=== PATIENT | female | born 1975 | race Caucasian/White ===

== ENCOUNTER 2017-02-16 20:29 | Inpatient (IN) ==
[~2017-02-16 20:29] MED LIST: ROCURONIUM 10 MG/ML ML IV ONE
[2017-02-16] MEDS ORDERED: LORazepam 2 MG/ML VIAL IV ONE (20:45)
[2017-02-16] MEDS ORDERED: LORazepam 2 MG/ML VIAL ONE (20:47)
[2017-02-16] MEDS ORDERED: 0.9 % SODIUM CHLORIDE 2,000 ML IV ONE (20:57)
[2017-02-16 21:48] LABS: Basophils # (Auto) 0 K/mcL (0.0-0.3); Basophils % (Auto) 0.7 % (0.0-2.0); Eosinophils # (Auto) 0.2 K/mcL (0.0-0.7); Eosinophils % (Auto) 3.7 % (0.0-7.0); Granulocytes % (Auto) 58.9 % (38.0-78.0); Lymphocytes # (Auto) 1.6 K/mcL (1.5-4.8); Lymphocytes % (Auto) 28.7 % (15.5-49.0); Mean Cell Volume 83.6 fL (80.0-100.0); Mean Corpuscular HGB Conc 33.3 g/dL (31.0-36.0); Mean Corpuscular Hemoglobin 27.9 pg (26.0-34.0); Monocytes # (Auto) 0.4 K/mcL (0.1-0.9); Platelet Count 308 K/mcL (140-440); RBC 3.93 M/mcL (4.00-5.20); Red Cell Distribution Width 12.9 % (11.5-14.5)
[2017-02-16 22:12] LABS: ALT/SGPT 13 U/l (0-40); Albumin 3.5 gm/dL (3.2-5.2); Alkaline Phosphatase 85 U/L (39-117); Blood Urea Nitrogen 16 mg/dl (6-20); Lipase 28 U/L (7-60)
[2017-02-16] MEDS ORDERED: NOREPINEPHRINE BITARTRATE 4 MG/4 ML AMPUL IV ONE (22:24)
[2017-02-16 22:29] LABS: Acetaminophen < 5.0 mcg/ml (10.0-30.0); Salicylate < 0.2 mg/dL (0-30.0)
[2017-02-16] MEDS ORDERED: NOREPINEPHRINE BITARTRATE 16 MG in 0.9 % SODIUM CHLORIDE 234 ML IV SCH (22:30)
[2017-02-16] MEDS ORDERED: 0.9 % SODIUM CHLORIDE 250 ML IV SCH (22:30)
[2017-02-16 22:35] LABS: Appearance,Urine HAZY; Bacteria,Urine FEW /hpf (0); Bilirubin,Urine NEG (NEG); Color,Urine YELLOW; Glucose,Urine (UA) NEGATIVE (NEG); Leukocyte Esterase,Urine 25 /uL (NEG); Mucus,Urine MOD /hpf (0); Nitrate,Urine NEG (NEG); Protein,Urine 100 mg/dL (NEG); Urine Blood 0.03 mg/dL (<0.03); Urine Hyaline Cast 21 /lpf (0-2); Urine RBC 51 /hpf (0-1); Urine Squamous Epithelial Cell 1 /hpf (0-4); Urine Transitional Epi Cells < 1 /hpf (0-2); Urine WBC 10 /hpf (0-4); Urobilinogen,Urine NEG (NEG)
[2017-02-16 22:51] LABS: Amphetamine Screen,Urine SUSPECT POSITIVE (NONDETECTED); Benzodiazepines Screen,Urine NONE DETECTED (NONDETECTED); Cocaine Screen,Urine NONE DETECTED (NONDETECTED); Opiate Screen,Urine NONE DETECTED (NONDETECTED); Oxycodone, Urine Screen NONE DETECTED (NONDETECTED)
--- NOTE | 2017-02-16 22:51 | Emergency Department Note ---
General Adult HPI - General Chief complaint: Overdose Stated complaint: Overdose Time Seen by Provider: 02/16/17 20:57 Source: EMS Mode of arrival: EMS Limitations: altered mental status - History of Present Illness HPI Narrative: 41-year-old female was found down at home by her family with an empty syringe near her-this history per EMS. She does have a history of polysubstance abuse and IV drug use. However no family has come with her so I am unable to get any further history or review of systems. She is totally unresponsive except to sternal rub/painful stimuli-GCS is 7 with adequate breathing/respirations with oxygen support and pulse/blood pressure. EMS gave her 4 mg of Narcan intranasal which did not help at all-no noticeable change. It is unclear how long she was down and we do not know CODE STATUS - Related Data Home Medications Medication Instructions Recorded Confirmed buprenorphine 8 mg-naloxone 2 mg tab SUBLINGUAL TID tab 01/23/17 01/23/17 sublingual tablet Previous Rx's Medication Instructions Recorded clonidine HCl 0.3 mg tablet 0.3 mg PO BID #60 tab 10/11/16 atomoxetine 25 mg capsule 25 mg PO QDAY #30 cap 12/12/16 cyclobenzaprine 10 mg tablet 10 mg PO HS #30 tab 12/15/16 hydroxychloroquine 200 mg tablet 200 mg PO BID #60 tab 12/15/16 nabumetone 750 mg tablet 750 mg PO BID #60 tab 12/15/16 duloxetine 60 mg capsule,delayed 60 mg PO QDAY #30 cap 12/26/16 release Ciprofloxacin [Cipro] 250 mg PO BID #10 tablet 02/01/17 gabapentin 300 mg capsule 900 mg PO Q8H #270 cap 02/06/17 Allergies Allergy/AdvReac Type Severity Reaction Status Date / Time diphenhydramine AdvReac Intermediate Agitated Verified 01/31/17 20:43 [From Benadryl] Review of Systems Limitations: ROS unobtainable due to patients medical condition Past Medical History - Past Medical History Source: old records reviewed Medical history: Reports: fibromyalgia, hypertension, other (SLE, narcotic abuse ) Surgical history ED: Reports: cholecystectomy Psychiatric history: Reports: anxiety, depression, prior suicide attempt Family history: Reports: diabetes, other family history (Ankylosing spondylitis , RA, seizures) - Social History smoking status: Current every day smoker Alcohol use: Reports: None Drug use: Reports: prescription drug abuse Physical Exam On initial exam she is in no acute distress resting comfortably but totally unresponsive with a GCS of 7-no eye-opening, incomprehensible verbal response only to pain, withdrawal from pain. However her vital signs are stable with adequate blood pressure pulse respiratory rate and oxygenation with minimal support. Pulses are palpable at posterior tibialis femoral brachial radial and carotid-but thready with best at brachial. Pupils are not fixed or pinpoint but they are small and symmetrical, not responsive to light. I do not see any signs of trauma When trying to place a line and then place an IO she did attempt to withdraw from pain but this was nonspecific-she did not localize. On intubation she did initially attempt to fight jaw opening and so we had to use rocuronium. However her eyes never opened. Postintubation she did have equal lung sounds bilaterally and her heart rate was regular without murmur. Abdomen was nontender and there was no difficulty placing Miguel. I do not see any signs of direct injury or trauma - General Limitations: no limitations, other Course Vital Signs Pulse Rate 78 L 02/16/17 20:30 Respiratory Rate 15 L 02/16/17 20:30 Blood Pressure 131/80 02/16/17 20:30 Pulse Oximetry (%) 100 02/16/17 20:30 Pulse Rate 76 02/16/17 21:16 Respiratory Rate 14 02/16/17 21:16 Blood Pressure 100/80 02/16/17 21:16 Pulse Oximetry (%) 99 02/16/17 21:16 Medical Decision Making - Medical Records Medical records reviewed: Yes I reviewed the patient's medical records. I reviewed recent office notes as well as my last ER note with her - Lab Data Lab results reviewed: Yes I reviewed the patient's lab results. Result diagrams: 02/16/17 20:45 02/16/17 21:16 Lab Results 02/16/17 02/16/17 02/16/17 Range/Units 20:45 21:16 21:16 WBC 5.5 (4.5-11.0) K/mcL RBC 3.93 L (4.00-5.20) M/mcL Hgb 10.9 L (12.0-15.0) g/dL Hct 32.8 L (36.0-48.0) % POC Hct 34.0 L (36.0-48.0) % MCV 83.6 (80.0-100.0) fL MCH 27.9 (26.0-34.0) pg MCHC 33.3 (31.0-36.0) g/dL RDW 12.9 (11.5-14.5) % Plt Count 308 (140-440) K/mcL MPV 8.5 (7.4-10.4) fL Gran % 58.9 (38.0-78.0) % Lymph % (Auto) 28.7 (15.5-49.0) % [place] % (Auto) 8.0 (1.0-12.0) % Eos % (Auto) 3.7 (0.0-7.0) % Baso % (Auto) 0.7 (0.0-2.0) % Gran # 3.2 (1.8-8.0) K/mcL Lymph # (Auto) 1.6 (1.5-4.8) K/mcL [place] # (Auto) 0.4 (0.1-0.9) K/mcL Eos # (Auto) 0.2 (0.0-0.7) K/mcL Baso # (Auto) 0 (0.0-0.3) K/mcL Patient Temperature ABG pH ABG pH (Temp Correct) ABG pCO2 ABG pCO2 (Temp Corrct ABG pO2 ABG pO2 (Temp Correct ABG HCO3 ABG Total CO2 ABG O2 Saturation ABG Base Excess ABG Methemoglobin VBG Lactic Acid 1.7 (0.5-2.2) mmol/L Carboxyhemoglobin Total Hemoglobin Carbon Monoxide Screen 1.7 H (0.0-1.5) % Respiration Rate O2 Delivery Method O2 Delivery Level Vent Mode FiO2 Tidal Volume PEEP POC Sodium 142 (133-145) mmol/L Sodium 139 (133-145) mmol/L POC Potassium 3.2 L (3.3-5.1) mmol/L Potassium 3.2 L (3.3-5.1) mmol/L POC Chloride 103 (96-108) mmol/L Chloride 101 (96-108) mmol/L Carbon Dioxide 24 (22-30) mmol/L POC Total CO2 25 (22-30) mmol/L Anion Gap 14.0 (8-16) POC BUN 15 (6-20) mg/dl BUN 16 (6-20) mg/dl Creatinine 0.7 (0.6-1.1) mg/dl POC Creatinine 0.7 (0.6-1.1) mg/dl GFR Calculation 106 Glucose 143 H (70-105) mg/dL POC Glucose 137 H (70-105) mg/dL Calcium 8.4 L (8.6-10.4) mg/dl POC WB Ioniz Calcium 1.13 L (1.16-1.32) mmol/L Total Bilirubin 0.2 (0.0-1.0) mg/dL AST 19 (0-37) U/l ALT 13 (0-40) U/l Alkaline Phosphatase 85 (39-117) U/L Troponin T (0-0.03) ng/ml Total Protein 7.0 (5.9-8.4) gm/dL Albumin 3.5 (3.2-5.2) gm/dL Globulin 3.5 (2.2-3.7) gm/dL Albumin/Globulin Ratio 1.0 (1.0-2.3) Lipase 28 (7-60) U/L Urine Color Urine Appearance Urine pH (5.0-9.0) Ur Specific [place] (1.000-1.035) Urine Protein (NEG) mg/dL Urine Glucose (UA) (NEG) mg/dL Urine Ketones (NEG) mg/dL Urine Occult Blood (<0.03) mg/dL Urine Nitrate (NEG) Urine Bilirubin (NEG) mg/dL Urine Urobilinogen (NEG) mg/dL Ur Leukocyte Esterase (NEG) /uL Urine RBC (0-1) /hpf Urine WBC (0-4) /hpf Ur Squamous Epith Cells (0-4) /hpf Ur Transition Epith Cell (0-2) /hpf Urine Bacteria (0) /hpf Hyaline Casts (0-2) /lpf Urine Mucus (0) /hpf Ur Culture Indicated? Salicylates (0-30.0) mg/dL Urine Opiates Screen (NONDETECTED) Ur Oxycodone Screen (NONDETECTED) Urine Methadone Screen (NONDETECTED) Acetaminophen (10.0-30.0) mcg/ml Ur Barbiturates Screen (NONDETECTED) Ur Phencyclidine Scrn (NONDETECTED) Ur Amphetamines Screen (NONDETECTED) U Benzodiazepines Scrn (NONDETECTED) Urine Cocaine Screen (NONDETECTED) U Marijuana (THC) Screen (NONDETECTED) Ethyl Alcohol (<0.010) gm/dl 02/16/17 02/16/17 02/16/17 Range/Units 21:16 21:16 21:16 WBC (4.5-11.0) K/mcL RBC (4.00-5.20) M/mcL Hgb (12.0-15.0) g/dL Hct (36.0-48.0) % POC Hct (36.0-48.0) % MCV (80.0-100.0) fL MCH (26.0-34.0) pg MCHC (31.0-36.0) g/dL RDW (11.5-14.5) % Plt Count (140-440) K/mcL MPV (7.4-10.4) fL Gran % (38.0-78.0) % Lymph % (Auto) (15.5-49.0) % [place] % (Auto) (1.0-12.0) % Eos % (Auto) (0.0-7.0) % Baso % (Auto) (0.0-2.0) % Gran # (1.8-8.0) K/mcL Lymph # (Auto) (1.5-4.8) K/mcL [place] # (Auto) (0.1-0.9) K/mcL Eos # (Auto) (0.0-0.7) K/mcL Baso # (Auto) (0.0-0.3) K/mcL Patient Temperature ABG pH ABG pH (Temp Correct) ABG pCO2 ABG pCO2 (Temp Corrct ABG pO2 ABG pO2 (Temp Correct ABG HCO3 ABG Total CO2 ABG O2 Saturation ABG Base Excess ABG Methemoglobin VBG Lactic Acid (0.5-2.2) mmol/L Carboxyhemoglobin Total Hemoglobin Carbon Monoxide Screen (0.0-1.5) % Respiration Rate O2 Delivery Method O2 Delivery Level Vent Mode FiO2 Tidal Volume PEEP POC Sodium (133-145) mmol/L Sodium (133-145) mmol/L POC Potassium (3.3-5.1) mmol/L Potassium (3.3-5.1) mmol/L POC Chloride (96-108) mmol/L Chloride (96-108) mmol/L Carbon Dioxide (22-30) mmol/L POC Total CO2 (22-30) mmol/L Anion Gap (8-16) POC BUN (6-20) mg/dl BUN (6-20) mg/dl Creatinine (0.6-1.1) mg/dl POC Creatinine (0.6-1.1) mg/dl GFR Calculation Glucose (70-105) mg/dL POC Glucose (70-105) mg/dL Calcium (8.6-10.4) mg/dl POC WB Ioniz Calcium (1.16-1.32) mmol/L Total Bilirubin (0.0-1.0) mg/dL AST (0-37) U/l ALT (0-40) U/l Alkaline Phosphatase (39-117) U/L Troponin T < 0.01 (0-0.03) ng/ml Total Protein (5.9-8.4) gm/dL Albumin (3.2-5.2) gm/dL Globulin (2.2-3.7) gm/dL Albumin/Globulin Ratio (1.0-2.3) Lipase (7-60) U/L Urine Color Urine Appearance Urine pH (5.0-9.0) Ur Specific [place] (1.000-1.035) Urine Protein (NEG) mg/dL Urine Glucose (UA) (NEG) mg/dL Urine Ketones (NEG) mg/dL Urine Occult Blood (<0.03) mg/dL Urine Nitrate (NEG) Urine Bilirubin (NEG) mg/dL Urine Urobilinogen (NEG) mg/dL Ur Leukocyte Esterase (NEG) /uL Urine RBC (0-1) /hpf Urine WBC (0-4) /hpf Ur Squamous Epith Cells (0-4) /hpf Ur Transition Epith Cell (0-2) /hpf Urine Bacteria (0) /hpf Hyaline Casts (0-2) /lpf Urine Mucus (0) /hpf Ur Culture Indicated? Salicylates < 0.2 (0-30.0) mg/dL Urine Opiates Screen (NONDETECTED) Ur Oxycodone Screen (NONDETECTED) Urine Methadone Screen (NONDETECTED) Acetaminophen < 5.0 L (10.0-30.0) mcg/ml Ur Barbiturates Screen (NONDETECTED) Ur Phencyclidine Scrn (NONDETECTED) Ur Amphetamines Screen (NONDETECTED) U Benzodiazepines Scrn (NONDETECTED) Urine Cocaine Screen (NONDETECTED) U Marijuana (THC) Screen (NONDETECTED) Ethyl Alcohol < 0.010 (<0.010) gm/dl 02/16/17 02/16/17 02/16/17 Range/Units 21:16 21:59 22:01 WBC (4.5-11.0) K/mcL RBC (4.00-5.20) M/mcL Hgb (12.0-15.0) g/dL Hct (36.0-48.0) % POC Hct (36.0-48.0) % MCV (80.0-100.0) fL MCH (26.0-34.0) pg MCHC (31.0-36.0) g/dL RDW (11.5-14.5) % Plt Count (140-440) K/mcL MPV (7.4-10.4) fL Gran % (38.0-78.0) % Lymph % (Auto) (15.5-49.0) % [place] % (Auto) (1.0-12.0) % Eos % (Auto) (0.0-7.0) % Baso % (Auto) (0.0-2.0) % Gran # (1.8-8.0) K/mcL Lymph # (Auto) (1.5-4.8) K/mcL [place] # (Auto) (0.1-0.9) K/mcL Eos # (Auto) (0.0-0.7) K/mcL Baso # (Auto) (0.0-0.3) K/mcL Patient Temperature Cancelled ABG pH Cancelled ABG pH (Temp Correct) Cancelled ABG pCO2 Cancelled ABG pCO2 (Temp Corrct Cancelled ABG pO2 Cancelled ABG pO2 (Temp Correct Cancelled ABG HCO3 Cancelled ABG Total CO2 Cancelled ABG O2 Saturation Cancelled ABG Base Excess Cancelled ABG Methemoglobin Cancelled VBG Lactic Acid (0.5-2.2) mmol/L Carboxyhemoglobin Cancelled Total Hemoglobin Cancelled Carbon Monoxide Screen (0.0-1.5) % Respiration Rate Cancelled O2 Delivery Method Cancelled O2 Delivery Level Cancelled Vent Mode Cancelled FiO2 Cancelled Tidal Volume Cancelled PEEP Cancelled POC Sodium (133-145) mmol/L Sodium (133-145) mmol/L POC Potassium (3.3-5.1) mmol/L Potassium (3.3-5.1) mmol/L POC Chloride (96-108) mmol/L Chloride (96-108) mmol/L Carbon Dioxide (22-30) mmol/L POC Total CO2 (22-30) mmol/L Anion Gap (8-16) POC BUN (6-20) mg/dl BUN (6-20) mg/dl Creatinine (0.6-1.1) mg/dl POC Creatinine (0.6-1.1) mg/dl GFR Calculation Glucose (70-105) mg/dL POC Glucose (70-105) mg/dL Calcium (8.6-10.4) mg/dl POC WB Ioniz Calcium (1.16-1.32) mmol/L Total Bilirubin (0.0-1.0) mg/dL AST (0-37) U/l ALT (0-40) U/l Alkaline Phosphatase (39-117) U/L Troponin T (0-0.03) ng/ml Total Protein (5.9-8.4) gm/dL Albumin (3.2-5.2) gm/dL Globulin (2.2-3.7) gm/dL Albumin/Globulin Ratio (1.0-2.3) Lipase (7-60) U/L Urine Color Yellow Urine Appearance Hazy Urine pH 5.0 (5.0-9.0) Ur Specific [place] 1.030 (1.000-1.035) Urine Protein 100 A (NEG) mg/dL Urine Glucose (UA) Negative (NEG) mg/dL Urine Ketones Neg (NEG) mg/dL Urine Occult Blood 0.03 A (<0.03) mg/dL Urine Nitrate Neg (NEG) Urine Bilirubin Neg (NEG) mg/dL Urine Urobilinogen Neg (NEG) mg/dL Ur Leukocyte Esterase 25 A (NEG) /uL Urine RBC 51 H (0-1) /hpf Urine WBC 10 H (0-4) /hpf Ur Squamous Epith Cells 1 (0-4) /hpf Ur Transition Epith Cell < 1 (0-2) /hpf Urine Bacteria Few A (0) /hpf Hyaline Casts 21 H (0-2) /lpf Urine Mucus Mod (0) /hpf Ur Culture Indicated? Yes Salicylates (0-30.0) mg/dL Urine Opiates Screen None detected (NONDETECTED) Ur Oxycodone Screen None detected (NONDETECTED) Urine Methadone Screen None detected (NONDETECTED) Acetaminophen (10.0-30.0) mcg/ml Ur Barbiturates Screen None detected (NONDETECTED) Ur Phencyclidine Scrn Suspect positive A (NONDETECTED) Ur Amphetamines Screen Suspect positive A (NONDETECTED) U Benzodiazepines Scrn None detected (NONDETECTED) Urine Cocaine Screen None detected (NONDETECTED) U Marijuana (THC) Screen None detected (NONDETECTED) Ethyl Alcohol (<0.010) gm/dl First arterial blood gas showed pH of 7.39 with PCO2 of 48 and a PO2 of 50 it is unclear if this was veinous but it is suspected Second arterial blood gas was repeated on the other side which showed pH of 7.34 PCO2 of 51 and PO2 of 70 - Radiology Data Radiology results reviewed: Yes I reviewed the patient's radiology results. Chest x-ray shows possibly early bilateral infiltrate but this is equivocal as its portable. ET tube is perhaps 4 cm above the tala - EKG Data EKG #1 EKG attestation: Yes I reviewed and interpreted this EKG. EKG results narrative: EKG shows a rate of 87 borderline long QT no evidence of ischemia Critical Care Time Critical Care Time: Yes Total Critical Care Time: 45 Attestation: I spent 45 minutes of critical care time not including procedure time or initial evaluation. This included serial examination, documentation, care coordination. I was immediately available at all times Disposition Pt seen by FRONT END UI DEVELOPER/PA only: No Clinical Impression: Drug overdose Qualifiers: Encounter type: initial encounter Injury intent: undetermined intent Qualified Code(s): T50.904A - Poisoning by unspecified drugs, medicaments and biological substances, undetermined, initial encounter Hypotension Qualifiers: Hypotension type: hypotension due to drug Qualified Code(s): I95.2 - Hypotension due to drugs Summary: Initially came in as a drug overdose/code but patient was breathing on her own with normal respirations heart rate and blood pressure. IO was placed as we were having difficulty getting a IV. oxygen was given blow-by but she did not require it. She was found to have a GCS of 7 and so we intubated her to protect her airway-she was given 80 mg of rocuronium and then I allowed EMS to intubate to maintain their skill set-he was successful after first attempt with video-assisted laryngoscope. She was been given another 20 mg of rocuronium and 2 of Ativan to keep her sedated-however she did not require any further. Laboratory was ordered. Miguel was placed. Chest x-ray was ordered for tube placement. See nursing notes for orders, code times etc. At no time did she require CPR CT scan of the head showed no acute cranial abnormality Chest x-ray showed ET tube was a little too high and so it was advanced ABG was was done 2 to adjust vent Later, after she had been here about 2 hours she started developing hypotension despite getting IV fluids. We placed her in reverse Trendelenburg and started Levophed Discussed her case with Dr. Payton Angeles, the hospitalist, who agreed to accept the patient in transfer for further care Disposition: Xfer As Inpt ([facility]) Condition: Critical Referrals: Kelechi Andrew DO [Physician] -
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
[2017-02-16] MEDS ORDERED: NALOXONE HCL 0.4 MG/ML VIAL IV PRN (23:21)
[2017-02-16] MEDS ORDERED: ACETAMINOPHEN 650 MG SUPP.RECT PR PRN (23:21)
[2017-02-16] MEDS ORDERED: ALBUTEROL SULFATE 2.5 MG/3 ML NEBULIZER NEB PRN (23:21)
[2017-02-16] MEDS ORDERED: BISACODYL 10 MG SUPP.RECT PR PRN (23:21)
[2017-02-16] MEDS ORDERED: ONDANSETRON 4 MG/2 ML VIAL IV PRN (23:21)
[2017-02-16] MEDS ORDERED: PROPOFOL 100 ML IV SCH (23:21)
[2017-02-16] MEDS: POTASSIUM CHLORIDE 40 MEQ in DEXTROSE 5%-1/2NS 1,000 ML IV SCH (23:40)
[2017-02-16] MEDS: PROPOFOL 1,000 MG in PREMIX 1 BAG IV SCH (23:40)
[2017-02-17] MEDS ORDERED: PROPOFOL 100 ML IV ONE (00:08)
[2017-02-17] MEDS: 0.9 % SODIUM CHLORIDE 250 ML IV SCH ×4 (00:16→17:56)
[2017-02-17] MEDS ORDERED: PIPERACILLIN SODIUM/TAZOBACTAM 3.375 GM VIAL IV ONE (01:29)
[2017-02-17] MEDS: PIPERACILLIN SODIUM/TAZOBACTAM 3.375 GM in DEXTROSE 5% IN WATER 50 ML IV SCH ×4 (01:39→18:06)
[2017-02-17] MEDS ORDERED: ALBUTEROL SULFATE 2.5 MG/3 ML NEBULIZER ONE (01:51)
[2017-02-17] MEDS: ALBUTEROL SULFATE 2.5 MG/3 ML NEBULIZER NEB SCH ×4 (01:55→19:51)
[2017-02-17 06:06] LABS: Basophils # (Auto) 0 K/mcL (0.0-0.3); Basophils % (Auto) 0.1 % (0.0-2.0); Eosinophils # (Auto) 0.1 K/mcL (0.0-0.7); Eosinophils % (Auto) 1.2 % (0.0-7.0); Granulocytes % (Auto) 66.8 % (38.0-78.0); Lymphocytes # (Auto) 1.4 K/mcL (1.5-4.8); Lymphocytes % (Auto) 23.1 % (15.5-49.0); Mean Cell Volume 85.1 fL (80.0-100.0); Mean Corpuscular HGB Conc 33.4 g/dL (31.0-36.0); Mean Corpuscular Hemoglobin 28.4 pg (26.0-34.0); Monocytes # (Auto) 0.5 K/mcL (0.1-0.9); Monocytes % (Auto) 8.8 % (1.0-12.0); Platelet Count 262 K/mcL (140-440); RBC 4.07 M/mcL (4.00-5.20)
[2017-02-17 06:13] LABS: ALT/SGPT 12 U/l (0-40); Albumin 3.2 gm/dL (3.2-5.2); Albumin/Globulin Ratio 0.8 (1.0-2.3); Alkaline Phosphatase 82 U/L (39-117); Bilirubin,Direct < 0.2 mg/dL (0.0-0.3); Blood Urea Nitrogen 12 mg/dl (6-20); Gamma Glutamyl Transpeptidase 10 U/L (5-36); Magnesium 1.7 mg/dL (1.6-2.5)
[2017-02-17] MEDS: 0.9 % SODIUM CHLORIDE 10 ML SYRINGE IV SCH ×3 (07:23→22:03)
--- NOTE | 2017-02-17 08:10 | XRay Report ---
HISTORY: Reason for Exam:intubated FINDINGS: The endotracheal tube has been inserted. The tip is 4.7 cm above the tala the level of the top of the head of the clavicles. There is no abnormal widening of the mediastinum and no pneumothorax or pleural effusion are present. There are mild perihilar infiltrates in both lungs, right greater than left. The greatest involvement overlies right lower hilum. There has been moderate improvement of the infiltrate in the right side since 01-31. The infiltrate on the left side has not changed significantly. The heart size is normal. IMPRESSION: Well-positioned endotracheal tube. Bilateral perihilar infiltrates which may be due to pneumonia Interpreted and Authenticated by: Nii Herrera 02/17/17
--- NOTE | 2017-02-17 08:11 | Cat Scan Report ---
History: Overdose and unresponsive Findings: The brain was imaged without contrast at 2.5 mm intervals. The brain appears normal without evidence of edema, hemorrhage, infarct or mass effect. The ventricles and cisterns are normal. Bone windows show no skull fracture. Impression: Normal exam Interpreted and Authenticated by: Nii Herrera 02/17/17
--- NOTE | 2017-02-17 08:13 | XRay Report ---
HISTORY: Reason for Exam:NG placement FINDINGS: There is nasogastric tube in the body of the stomach pointing towards the left lateral side of the abdomen. The bowel pattern is normal. No free intra-abdominal air is seen on this supine image. There may be a clip in the gallbladder fossa. Moderate amount of stool is present in the right side of the colon. IMPRESSION: Normal exam with a nasogastric tube in the stomach Interpreted and Authenticated by: Nii Herrera 02/17/17
[2017-02-17] MEDS ORDERED: MAGNESIUM SULFATE 2 GM/50 ML BAG IV ONE (08:34)
[2017-02-17] MEDS: CHLORHEXIDINE GLUCONATE 1 ML ORAL.SOL SWABMOUTH SCH ×2 (08:39→21:26)
[2017-02-17] MEDS: HEPARIN 5,000 UNIT/ML VIAL SQ SCH ×2 (08:42→21:26)
[2017-02-17] MEDS: FAMOTIDINE/PF 20 MG/2 ML VIAL IV SCH ×2 (08:42→21:25)
[2017-02-17] MEDS: POTASSIUM CHLORIDE 40 MEQ in DEXTROSE 5%-1/2NS 1,000 ML IV SCH ×3 (08:50→20:00)
--- NOTE | 2017-02-17 08:57 | XRay Report ---
History: Intubated and pulmonary protrudes Endotracheal tube has been advanced and is now less than 1 cm above the tala and points towards the right mainstem bronchus. The nasogastric tube remains in the fundus of the stomach. There are ill-defined bilateral perihilar infiltrates. This is become more prominent since the prior study done on 02/16/17. The heart size is normal. Bands of discoid atelectasis have developed laterally in the right lower thorax. There is a tiny right-sided pleural effusion. No pneumothorax is present. Impression: Low-lying endotracheal tube Worsening bilateral infiltrates which could be due to pneumonia or pulmonary vascular congestion Interpreted and Authenticated by: Nii Herrera 02/17/17
[2017-02-17] MEDS ORDERED: CHLORHEXIDINE GLUCONATE 1 ML ORAL.SOL SWABMOUTH SCH (09:00)
--- NOTE | 2017-02-17 12:05 | Internal Med Progress Note ---
Medical - PN: Subj Patient information: Note initiated : 02/17/17 at 12:05 pm Service Date, if different from initiated Date: [] Patient: Radha Van a 41 y/o F admitted on 02/16/17 for Drug Overdose. Chief Complaint: [] Interval history: February 16, 2017: History of present illness: Ms. Van is a 41 year old female who reportedly was found down at home by her landlady, with an empty syringe near her. 911 was called. She does have a past history of polysubstance abuse. Her family did not arrive at the emergency room, so there is very little history available. In the emergency room she was only minimally responsive to sternal rub and painful stimuli, with Glascow coma score of 7. She did not respond to IV Narcan. It is unknown how long she was down for. She was intubated in the emergency room to protect her airway. Blood pressures have been running on the low side, so she has been given IV fluids and IV Levophed for support. SHe is now admitted to the intensive care unit, for continued management. February 17: The patient had a relatively quiet night. She was weaned off the propofol this morning, and was fairly calm and mostly unresponsive initially, but then she did wake up and became rather violent and resisted restraints and the ET tube. The nurses could not get her to settle down or follow commands, so propofol was resumed. She did drop her O2 saturations during that period, and FiO2 was increased back up to 45%. -Chest x-ray this morning shows that the ET tube is in a little far, so that was pulled back a bit. She does have bilateral infiltrates consistent with pneumonia, but this may be a bit better this morning. -Urine output has been borderline at about 30 mL/h. -Her mother called in today to check on her, but said she was not sure she would be in today. She reported she has been through this just too many times. - Constitutional Vitals: Vital Signs Temp Pulse Resp BP Pulse Ox 98.5 F 66 17 135/103 97 02/17/17 11:00 02/17/17 11:00 02/17/17 11:00 02/17/17 11:00 02/17/17 11:00 Period Temp Pulse Resp BP Sys/Chung Pulse Ox Last 24 Hr 94.5 F-98.8 F 65-76 10-23 103-135/71-105 91-100 Intake and Output 02/16/17 02/17/17 02/17/17 21:59 05:59 13:59 Intake Total 76 / 2080 1502 / 1502 Output Total 860 / 860 135 / 135 Balance -784 / 1220 1367 / 1367 Weight 177 lb 14.4 oz Intake & Output: Intake & Output 02/16/17 02/17/17 02/17/17 21:59 05:59 13:59 Intake Total 76 / 2080 1502 / 1502 Output Total 860 / 860 135 / 135 Balance -784 / 1220 1367 / 1367 Weight 177 lb 14.4 oz Intake: IV 76 / 76 1502 / 1502 Sodium Chloride 0.9% 250 351 / 351 ml @ 20 mls/hr IV . [id number] [facility] Rx#:[id number] Zosyn 3.375 gm In 50 / 50 50 / 50 Dextrose 5% in Water 50 ml @ 100 mls/hr IV Q6H [facility] Rx#:[id number] Potassium Chloride 40 Meq 1020 / 1020 In Dextrose 5%-1/2Ns IV Solution 1,000 ml @ 125 mls/hr IV .Q8H10M [facility] Rx# :[id number] Diprivan 1,000 mg In Premix 1 Bag @ 5 MCG/KG/ MIN 2.42 mls/hr IV .Q24H [facility] Rx#:[id number] Output: Gastric Drainage 270 / 270 NG/OG 270 / 270 Urine Catheter Amount 590 / 590 135 / 135 Other: # Bowel Movements 0 The patient is intubated and sedated. Neck appears supple, without obvious JVD or lymphadenopathy. Cardiac exam shows regular rate and rhythm. Lungs are clear to auscultation. Abdomen is soft, with normal bowel sounds. NG tube is draining greenish fluid, although the nurses note occasionally become slightly pink tinged. Extremities: Show no significant edema. Neurologic: The patient is currently sedated and unresponsive. Nurses note when she was awake earlier, she was quite violently straining against the ET tube and her restraints. She did not seem able to calm down and listen to directions. Medical - PN: Obj Da - Labs CBC & Chem 7: 02/17/17 04:31 02/17/17 04:31 Labs: Abnormal Lab Results 02/17/17 02/17/17 04:31 04:31 Hgb 11.6 L Hct 34.6 L Lymph # (Auto) 1.4 L Glucose 161 H Globulin 3.8 H Albumin/Globulin Ratio 0.8 L February 17: Urine culture is growing gram-negative bacilli, with ID to follow ABG: On the ventilator, tidal volume 470, FiO2 45%, mechanical rate 10, PEEP of 5, assist control: PH 7.40, PCO2 44, PO2 108, bicarb 27, O2 saturation 98% February 16 nasal MRSA screen is negative. Chest x-ray: ET tube is well-positioned. NG tube is noted in the stomach. Mild streaky infiltrates in both lungs with the greatest involvement of the medial portion of the right lower lobe, without lobar consolidation. February 16: Urinalysis: 100 mg of protein, 25 leukocyte esterase, 51 red blood cells, 10 white blood cells, few bacteria Tox screen: Acetaminophen negative. Screening positive for PCP and amphetamines , otherwise negative. Alcohol negative. Head CT: Reported as negative. Chest x-ray: Reported as possible bilateral infiltrates. Well-positioned ET tube. EKG: Shows sinus tach at about 100. Intervals and axis appear normal. Abdominal x-ray: Normal exam with NG tube noted in the stomach. January 31, 2017: - Lower extremity Doppler: Negative for DVT. -Chest x-ray: Diffuse right-sided infiltrates and mild left perihilar infiltrate , consistent with pneumonia. January 23, 2017: Urine culture: Klebsiella pneumonia: Resistant to ampicillin, intermediate to Macrobid, otherwise pansensitive Meds: Medications Acetaminophen (Tylenol) 650 mg VT Q4-6HP PRN PRN Reason: PAIN/FEVER > 101 Albuterol Sulfate (Ventolin) 2.5 mg NEB Q4HRT PRN PRN Reason: Shortness Of Breath Or Wheezing Albuterol Sulfate (Ventolin) 2.5 mg NEB Q6H [facility] Last Admin: 02/17/17 07:03 Dose: 2.5 mg Bisacodyl (Dulcolax) 10 mg VT Q2-3DAYS PRN PRN Reason: Constipation Chlorhexidine Gluconate (Peridex) 15 ml SWABMOUTH BID [facility] Last Admin: 02/17/17 08:39 Dose: 15 ml Famotidine (Pepcid) 20 mg IV Q12 [facility] Last Admin: 02/17/17 08:42 Dose: 20 mg Heparin Sodium (Porcine) (Heparin) 5,000 unit SQ Q12 [facility] Last Admin: 02/17/17 08:42 Dose: 5,000 unit Norepinephrine Bitartrate 16 (mg/ Sodium Chloride) 250 mls @ 9.37 mls/hr IV Q24H [facility]; 10 MCG/MIN PRN Reason: Protocol Sodium Chloride (Sodium Chloride 0.9%) 250 mls @ 20 mls/hr IV .[id number] [facility] Last Infusion: 02/17/17 11:04 Dose: 10 mls/hr Sodium Chloride (Sodium Chloride 0.9%) 250 mls @ 20 mls/hr IV .[id number] [facility] Last Admin: 02/17/17 01:23 Dose: Not Given Potassium Chloride 40 meq/ (Dextrose/Sodium Chloride) 1,020 mls @ 125 mls/hr IV .Q8H10M [facility] Last Admin: 02/17/17 08:50 Dose: 125 mls/hr Piperacillin Sod/Tazobactam (Sod 3.375 gm/ Dextrose) 50 mls @ 100 mls/hr IV Q6H [facility] Last Infusion: 02/17/17 07:52 Dose: Infused Propofol 1,000 mg/ Premix 100 mls @ 2.42 mls/hr IV .Q24H [facility]; 5 MCG/KG/MIN PRN Reason: Protocol Last Titration: 02/17/17 11:04 Dose: 40 mcg/kg/min, 19.36 mls/hr Lorazepam (Ativan) 1 mg IV Q6HP PRN; Protocol PRN Reason: ANXIETY/SEDATION Morphine Sulfate (Morphine) 4 mg IV Q2HP PRN PRN Reason: Pain Naloxone HCl (Narcan) 0.1 mg IV Q2MIN PRN PRN Reason: Opiate Reversal Ondansetron HCl (Zofran) 4 mg IV Q4-6HP PRN PRN Reason: Nausea And Vomiting Sodium Chloride (Saline Flush) 10 ml IV Q8 [facility] Last Admin: 02/17/17 07:23 Dose: 10 ml Medical - PN: A/P - Time Spent With Patient Total time spent is greater than 50% in coordination of care (as documented) at patient's floor/unit and/or counseling patient: Greater than 35 minutes (1) Drug overdose Status: Acute Current Visit: Yes (2) Hypotension Status: Acute Current Visit: Yes (3) Connective tissue disease Status: Chronic Current Visit: No (4) Depression Status: Chronic Current Visit: No (5) Essential hypertension Status: Chronic Current Visit: No - Narrative A/P Narrative: #1. Apparent drug overdose. This patient presents with obtundation, and was found down at home by her family. A needle was found nearby, suggesting IV drug use. She has a known past history of polysubstance abuse, but had been clean and sober for a while. Was recently started on Suboxone. So far, tox screen is suggestive of methamphetamines and possible PCP. -The patient's blood gases look fine today, but when sedation was weaned she really was not able to follow directions. We will plan on continuing with sedation and ventilation for now, although we may give her another trial later this afternoon. -Mental status is probably not back to normal. Continue with IV fluids, and hopefully drugs will be flushed out of her system over time. -ICU. -Fluids, monitor electrolytes. -Potassium and calcium levels both look normal today. -Monitor heart on telemetry, stable so far.. -Unfortunately, her family did not arrive to discuss CODE STATUS. Hopefully she will be more alert cooperative, given more time. If she wakes up, she will require mental health evaluation. -Continue restraints for inability to follow direction, and high risk for pulling tubes and lines. 2. CODE STATUS: Unknown. Full code for now. 3. DVT prophylaxis: Subcu heparin. #4. Neurologic. The patient is minimally responsive, presumably due to IV drug use. Continue to monitor. 5. Pulmonary/infectious disease.. -Patient was recently diagnosed with bilateral pneumonia, and treated with Levaquin, on January 31. Current chest x-ray is still suggestive of pneumonia. -She has bilateral infiltrates. Current coverage is with Zosyn, and vancomycin was added today, given that she has had infiltrates at least since January 31. 6. Cardiac. So far, no signs of arrhythmias or heart block. 7. GI. Orogastric tube placed. Added IV famotidine for ulcer prophylaxis. -Patient is mildly more anemic than before. Check stool guaiacs. #8. . Abnormal urinalysis. Recent UTI. -Patient will be covered with Zosyn, and is growing gram negatives in her urine.. Pending cultures. #9. Nutrition. If she is not able to be extubated by tomorrow, consider tube feedings. Approximately 35 minutes has been spent so far today, reviewing test results, examining the patient, reviewing plan of care at our team meeting as well as with nursing staff, and writing orders.
--- NOTE | 2017-02-17 12:53 | XRay Report ---
HISTORY: Reason for Exam:ETT placement verification after pulled back 2cm FINDINGS: The endotracheal tube is well positioned, 3.8 cm above the tala. There is a nasogastric tube in the fundus the stomach, pointing inferiorly. There are mild streaky infiltrates in both lungs with greatest involvement in the medial portion right lower lobe. There is no lobar consolidation or pleural effusion. The heart size is normal. IMPRESSION: Well-positioned support tubes and no pneumothorax. There are two mild interstitial infiltrates bilaterally. There has been mild improvement since earlier today.. Interpreted and Authenticated by: Nii Herrera 02/17/17
[2017-02-17] MEDS ORDERED: VANCOMYCIN PER PHARMACY IV SCH (12:55)
[2017-02-17] MEDS: VANCOMYCIN 1,000 MG in 0.9 % SODIUM CHLORIDE 250 ML IV SCH ×2 (14:13→22:02)
[2017-02-17] MEDS: PROPOFOL 1,000 MG in PREMIX 1 BAG IV SCH (17:55)
[2017-02-17] MEDS: LORazepam 2 MG/ML VIAL IV PRN (21:48)
[2017-02-17] MEDS ORDERED: hydrALAZINE 20 MG/ML VIAL IV PRN ×2 (22:30)
[2017-02-17] MEDS: NOREPINEPHRINE BITARTRATE 16 MG in 0.9 % SODIUM CHLORIDE 234 ML IV SCH (23:18)
[2017-02-17] MEDS ORDERED: hydrALAZINE 20 MG/ML VIAL ONE (23:20)
[2017-02-18] MEDS: PROPOFOL 1,000 MG in PREMIX 1 BAG IV SCH (00:14)
[2017-02-18] MEDS: PIPERACILLIN SODIUM/TAZOBACTAM 3.375 GM in DEXTROSE 5% IN WATER 50 ML IV SCH ×4 (00:15→17:41)
[2017-02-18] MEDS: ALBUTEROL SULFATE 2.5 MG/3 ML NEBULIZER NEB SCH ×5 (01:17→19:02)
[2017-02-18] MEDS: 0.9 % SODIUM CHLORIDE 250 ML IV SCH ×4 (01:17→16:15)
[2017-02-18] MEDS: POTASSIUM CHLORIDE 40 MEQ in DEXTROSE 5%-1/2NS 1,000 ML IV SCH (04:09)
[2017-02-18] MEDS ORDERED: hydrALAZINE 20 MG/ML VIAL ONE (05:23)
[2017-02-18] MEDS: LORazepam 2 MG/ML VIAL IV PRN (06:02)
[2017-02-18 07:14] LABS: Basophils # (Auto) 0 K/mcL (0.0-0.3); Basophils % (Auto) 0.5 % (0.0-2.0); Eosinophils # (Auto) 0.2 K/mcL (0.0-0.7); Eosinophils % (Auto) 2.7 % (0.0-7.0); Lymphocytes # (Auto) 1.5 K/mcL (1.5-4.8); Lymphocytes % (Auto) 19.4 % (15.5-49.0); Mean Cell Volume 86.8 fL (80.0-100.0); Mean Corpuscular HGB Conc 33.4 g/dL (31.0-36.0); Mean Corpuscular Hemoglobin 28.9 pg (26.0-34.0); Monocytes # (Auto) 0.9 K/mcL (0.1-0.9); Monocytes % (Auto) 11.4 % (1.0-12.0); Platelet Count 265 K/mcL (140-440); RBC 4.05 M/mcL (4.00-5.20); Red Cell Distribution Width 13.1 % (11.5-14.5)
[2017-02-18 07:40] LABS: ALT/SGPT 12 U/l (0-40); Albumin 2.9 gm/dL (3.2-5.2); Albumin/Globulin Ratio 0.9 (1.0-2.3); Alkaline Phosphatase 78 U/L (39-117); Bilirubin,Direct < 0.2 mg/dL (0.0-0.3); Blood Urea Nitrogen 8 mg/dl (6-20); Gamma Glutamyl Transpeptidase 10 U/L (5-36); Magnesium 1.7 mg/dL (1.6-2.5); Uric Acid 2.5 mg/dL (2.5-8.0)
[2017-02-18] MEDS: DEXTROSE 5%-1/2NS W/40MEQ KCL 1,000 ML IV SCH ×4 (08:08→20:42)
[2017-02-18] MEDS: 0.9 % SODIUM CHLORIDE 10 ML SYRINGE IV SCH ×4 (08:35→21:24)
--- NOTE | 2017-02-18 08:59 | XRay Report ---
HISTORY: Reason for Exam:intubation, drug od and follow-up pulmonary infiltrates FINDINGS: There are numerous overlying artifacts. Endotracheal tube and nasogastric tube are well-positioned. There is no pneumothorax. A small but enlarging alveolar infiltrate is present in the right lower lobe. Right diaphragm is mildly elevated. More subtle interstitial infiltrate is present medially in the left lower lobe. This has remained stable. The heart size is normal. IMPRESSION: Small but worsening pneumonia in the right lower lobe Interpreted and Authenticated by: Nii Herrera 02/18/17
[2017-02-18] MEDS: FAMOTIDINE/PF 20 MG/2 ML VIAL IV SCH ×2 (09:18→21:23)
[2017-02-18] MEDS: HEPARIN 5,000 UNIT/ML VIAL SQ SCH ×2 (09:18→21:23)
[2017-02-18] MEDS: VANCOMYCIN 1,000 MG in 0.9 % SODIUM CHLORIDE 250 ML IV SCH ×2 (09:18→21:23)
--- NOTE | 2017-02-18 13:09 | Internal Med Progress Note ---
Medical - PN: Subj Patient information: Note initiated : 02/18/17 at 1:09 pm Service Date, if different from initiated Date: [] Patient: Radha Van a 41 y/o F admitted on 02/16/17 for Drug Overdose. Chief Complaint: [] Interval history: February 16, 2017: History of present illness: Ms. Van is a 41 year old female who reportedly was found down at home by her landlady, with an empty syringe near her. 911 was called. She does have a past history of polysubstance abuse. Her family did not arrive at the emergency room, so there is very little history available. In the emergency room she was only minimally responsive to sternal rub and painful stimuli, with Glascow coma score of 7. She did not respond to IV Narcan. It is unknown how long she was down for. She was intubated in the emergency room to protect her airway. Blood pressures have been running on the low side, so she has been given IV fluids and IV Levophed for support. SHe is now admitted to the intensive care unit, for continued management. February 17: The patient had a relatively quiet night. She was weaned off the propofol this morning, and was fairly calm and mostly unresponsive initially, but then she did wake up and became rather violent and resisted restraints and the ET tube. The nurses could not get her to settle down or follow commands, so propofol was resumed. She did drop her O2 saturations during that period, and FiO2 was increased back up to 45%. -Chest x-ray this morning shows that the ET tube is in a little far, so that was pulled back a bit. She does have bilateral infiltrates consistent with pneumonia, but this may be a bit better this morning. -Urine output has been borderline at about 30 mL/h. -Her mother called in today to check on her, but said she was not sure she would be in today. She reported she has been through this just too many times. February 18: The patient had a good night. She had a couple of episodes where she became quite agitated, but eventually was weaned off the propofol. She was given Ativan this morning for some mild agitation, but has been calm ever since then. She is easily arousable, and cooperative. She was on a weaning trial for quite some time, and did fine, so was extubated about an hour ago. As soon as she was extubated, she asked for pain medication, saying she had a bad headache and a sore throat. Otherwise, she denied chest pain or shortness of breath, abdominal pain, or other GI or symptoms. Later this afternoon, the patient is still quite drowsy. When she is awakened, she immediately asked for pain medication. She indicates she has pain in her head and throat and back and legs, but is fairly nonspecific about what actually hurts, and then almost immediately falls back asleep. Nursing staff tells me that a gentleman came by earlier today, saying he was her nurse charge rn, and that his uatsdin had been working with her to get clean and sober , and that they had gotten her job. He seemed to indicate however, that as soon as she made some money, they thought she had bought drugs. - Constitutional Vitals: Vital Signs Temp Pulse Resp BP Pulse Ox 99.3 F H 78 11 L 124/82 100 02/18/17 11:54 02/18/17 12:01 02/18/17 12:01 02/18/17 12:01 02/18/17 12:01 Period Temp Pulse Resp BP Sys/Chung Pulse Ox Last 24 Hr 97.4 F-99.8 F 54-78 10-19 105-144/73-115 95-100 Intake and Output 02/17/17 02/18/17 02/18/17 21:59 05:59 13:59 Intake Total 1590 / 1590 1170 / 1170 50 / 50 Output Total 360 / 360 638 / 638 835 / 835 Balance 1230 / 1230 532 / 532 -785 / -785 Weight 187 lb 8 oz Intake & Output: Intake & Output 02/17/17 02/18/17 02/18/17 21:59 05:59 13:59 Intake Total 1590 / 1590 1170 / 1170 50 / 50 Output Total 360 / 360 638 / 638 835 / 835 Balance 1230 / 1230 532 / 532 -785 / -785 Weight 187 lb 8 oz Intake: IV 1590 / 1590 1170 / 1170 50 / 50 Sodium Chloride 0.9% 250 84 / 84 0 / 0 ml @ 20 mls/hr IV . [id number] [facility] Rx#:[id number] Zosyn 3.375 gm In 50 / 50 50 / 50 50 / 50 Dextrose 5% in Water 50 ml @ 100 mls/hr IV Q6H [facility] Rx#:[id number] Potassium Chloride 40 Meq 1170 / 1170 870 / 870 In Dextrose 5%-1/2Ns IV Solution 1,000 ml @ 125 mls/hr IV .Q8H10M [facility] Rx# :[id number] Diprivan 1,000 mg In 36 / 36 0 / 0 Premix 1 Bag @ 5 MCG/KG/ MIN 2.42 mls/hr IV .Q24H [facility] Rx#:[id number] Vancomycin 1,000 mg In 250 / 250 250 / 250 Sodium Chloride 0.9% 250 ml @ 250 mls/hr IV Q12H [facility] Rx#:[id number] Output: Gastric Drainage 180 / 180 150 / 150 NG/OG 180 / 180 150 / 150 Urine Catheter Amount 180 / 180 488 / 488 835 / 835 On exam, she was a little bit drowsy, but otherwise awake and cooperative. Next shows no obvious lymphadenopathy or JVD. Cardiac shows regular rate and rhythm. Lungs are clear to auscultation. Abdomen is soft and nontender. Extremities: Show minimal edema. Neurologic: The patient was awake and cooperative prior to extubation. Later in the afternoon, the patient is extubated, and is maintaining saturation on room air. She remains quite sleepy. She does arouse to voice. She tends to talk in a whisper. She denies feeling drowsy, but tends to fall asleep mid sentence. Medical - PN: Obj Da - Labs CBC & Chem 7: 02/18/17 04:15 02/18/17 04:15 Labs: Abnormal Lab Results 02/18/17 02/18/17 02/17/17 04:15 04:15 04:31 Hgb 11.7 L 11.6 L Hct 35.1 L 34.6 L Lymph # (Auto) 1.4 L Glucose Calcium 7.9 L Phosphorus 2.4 L Albumin 2.9 L Globulin Albumin/Globulin Ratio 0.9 L 02/17/17 04:31 Hgb Hct Lymph # (Auto) Glucose 161 H Calcium Phosphorus Albumin Globulin 3.8 H Albumin/Globulin Ratio 0.8 L February 18: ABG on the ventilator, tidal volume 470, FiO2 25%, rate of 12: PH 7.44, CO2 36, PO2 71, bicarb 24, O2 saturation 95% February 17: Urine culture is growing E. coli, intermediate to Unasyn and ciprofloxacin and Levaquin, sensitive to Zosyn, Ancef, Macrobid ABG: On the ventilator, tidal volume 470, FiO2 45%, mechanical rate 10, PEEP of 5, assist control: PH 7.40, PCO2 44, PO2 108, bicarb 27, O2 saturation 98% February 16 nasal MRSA screen is negative. Chest x-ray: ET tube is well-positioned. NG tube is noted in the stomach. Mild streaky infiltrates in both lungs with the greatest involvement of the medial portion of the right lower lobe, without lobar consolidation. February 16: Urinalysis: 100 mg of protein, 25 leukocyte esterase, 51 red blood cells, 10 white blood cells, few bacteria Tox screen: Acetaminophen negative. Screening positive for PCP and amphetamines , otherwise negative. Alcohol negative. Head CT: Reported as negative. Chest x-ray: Reported as possible bilateral infiltrates. Well-positioned ET tube. EKG: Shows sinus tach at about 100. Intervals and axis appear normal. Abdominal x-ray: Normal exam with NG tube noted in the stomach. January 31, 2017: - Lower extremity Doppler: Negative for DVT. -Chest x-ray: Diffuse right-sided infiltrates and mild left perihilar infiltrate , consistent with pneumonia. January 23, 2017: Urine culture: Klebsiella pneumonia: Resistant to ampicillin, intermediate to Macrobid, otherwise pansensitive Meds: Medications Acetaminophen (Tylenol) 650 mg [place] Q4-6HP PRN PRN Reason: PAIN/FEVER > 101 Albuterol Sulfate (Ventolin) 2.5 mg NEB Q6HRT [facility] Last Admin: 02/18/17 07:08 Dose: 2.5 mg Bisacodyl (Dulcolax) 10 mg [place] Q2-3DAYS PRN PRN Reason: Constipation Chlorhexidine Gluconate (Peridex) 15 ml SWABMOUTH BID [facility] Last Admin: 02/17/17 21:26 Dose: 15 ml Famotidine (Pepcid) 20 mg IV Q12 [facility] Last Admin: 02/18/17 09:18 Dose: 20 mg Heparin Sodium (Porcine) (Heparin) 5,000 unit SQ Q12 [facility] Last Admin: 02/18/17 09:18 Dose: 5,000 unit Hydralazine HCl (Apresoline) 10 mg IV Q4-6HP PRN PRN Reason: Hypertension Last Admin: 02/18/17 11:40 Dose: 10 mg Norepinephrine Bitartrate 16 (mg/ Sodium Chloride) 250 mls @ 9.37 mls/hr IV Q24H [facility]; 10 MCG/MIN PRN Reason: Protocol Last Admin: 02/17/17 23:18 Dose: Not Given Sodium Chloride (Sodium Chloride 0.9%) 250 mls @ 20 mls/hr IV .[id number] [facility] Last Infusion: 02/18/17 07:08 Dose: Infused Sodium Chloride (Sodium Chloride 0.9%) 250 mls @ 20 mls/hr IV .[id number] [facility] Last Admin: 02/18/17 01:17 Dose: Not Given Piperacillin Sod/Tazobactam (Sod 3.375 gm/ Dextrose) 50 mls @ 100 mls/hr IV Q6H [facility] Last Admin: 02/18/17 11:51 Dose: 100 mls/hr Propofol 1,000 mg/ Premix 100 mls @ 2.42 mls/hr IV .Q24H [facility]; 5 MCG/KG/MIN PRN Reason: Protocol Last Titration: 02/18/17 07:18 Dose: Infused Vancomycin HCl 1,000 mg/ (Sodium Chloride) 250 mls @ 250 mls/hr IV Q12H [facility] Last Admin: 02/18/17 09:18 Dose: 200 mls/hr Potassium Chloride/Dextrose/Sod Cl (Dextrose 5%-1/2ns W/40meq Kcl) 1,000 mls @ 150 mls/hr IV .Q6H40M [facility] Last Admin: 02/18/17 08:08 Dose: Not Given Lorazepam (Ativan) 1 mg IV Q6HP PRN; Protocol PRN Reason: ANXIETY/SEDATION Last Admin: 02/18/17 06:02 Dose: 1 mg Morphine Sulfate (Morphine) 4 mg IV Q2HP PRN PRN Reason: Pain Last Admin: 02/18/17 12:56 Dose: 4 mg Naloxone HCl (Narcan) 0.1 mg IV Q2MIN PRN PRN Reason: Opiate Reversal Ondansetron HCl (Zofran) 4 mg IV Q4-6HP PRN PRN Reason: Nausea And Vomiting Sodium Chloride (Saline Flush) 10 ml IV Q8 [facility] Last Admin: 02/18/17 11:41 Dose: 10 ml Vancomycin HCl (Vancomycin Per Pharmacy) 1 order IV UD [facility] Medical - PN: A/P - Time Spent With Patient Total time spent is greater than 50% in coordination of care (as documented) at patient's floor/unit and/or counseling patient: Greater than 35 minutes (1) Drug overdose Status: Acute Current Visit: Yes (2) Hypotension Status: Acute Current Visit: Yes (3) Connective tissue disease Status: Chronic Current Visit: No (4) Depression Status: Chronic Current Visit: No (5) Essential hypertension Status: Chronic Current Visit: No - Narrative A/P Narrative: #1. Apparent drug overdose. This patient presents with obtundation, and was found down at home by her family. A needle was found nearby, suggesting IV drug use. She has a known past history of polysubstance abuse, but had been clean and sober for a while. Was recently started on Suboxone. So far, tox screen is suggestive of methamphetamines and possible PCP. -She is now extubated. Her friend that stopped by earlier, believes this was another suicide attempt. I did ask nursing staff to try calling [facility] to see if they could come and talk with her today or tomorrow. At the moment, the patient is still quite drowsy, and continues to complain of pain in various areas. We will continue to monitor her tonight, to see if she becomes more alert. Psychiatric follow-up when available. -Monitor heart on telemetry, stable so far.. -Unfortunately, her family did not arrive to discuss CODE STATUS. Hopefully she will be more alert cooperative, given more time. 2. CODE STATUS: Unknown. Full code for now. 3. DVT prophylaxis: Subcu heparin. #4. Neurologic. The patient is awake now, although she continues to be drowsy. Continue supportive care, and reevaluate mental status once more awake. 5. Pulmonary/infectious disease.. -Patient was extubated successfully this morning. She is maintaining O2 saturations on 3 L nasal cannula. -Patient was recently diagnosed with bilateral pneumonia, and treated with Levaquin, on January 31. Current chest x-ray is still suggestive of pneumonia. -She has bilateral infiltrates. Current coverage is with Zosyn, and vancomycin was added , given that she has had infiltrates at least since January 31. She continues to have a low-grade fever this evening. 6. Cardiac. So far, no signs of arrhythmias or heart block. Continue monitoring on telemetry 7. GI. Orogastric tube removed this morning. On IV famotidine for ulcer prophylaxis. -Start an oral diet once fully awake. -Patient is mildly more anemic than before. Check stool guaiacs. #8. . Abnormal urinalysis. Recent UTI. -Patient will be covered with Zosyn, and is growing gram negatives in her urine.. Pending cultures. #9. Renal. Calcium remains on the low side, as does phosphorus. Replace. Approximately 35 minutes has been spent so far today, reviewing test results, examining the patient twice, reviewing plan of care with nursing staff, and writing orders.
[2017-02-18] MEDS: CHLORHEXIDINE GLUCONATE 1 ML ORAL.SOL SWABMOUTH SCH ×2 (16:15→21:23)
[2017-02-18] MEDS ORDERED: ACETAMINOPHEN 500 MG TABLET PO PRN (19:02)
[2017-02-18] MEDS ORDERED: LIDOCAINE VISCOUS 2% 1 ML SOLUTION PO PRN ×2 (19:02→19:10)
[2017-02-18] MEDS: ACETAMINOPHEN 325 MG TABLET PO PRN (19:16)
[2017-02-18] MEDS ORDERED: ACETAMINOPHEN 325 MG TABLET PO ONE (19:18)
[2017-02-18] MEDS ORDERED: NEUTRA PHOS 1 PACKET ONE (22:47)
[2017-02-18] MEDS: NEUTRA PHOS 1 PACKET PO SCH (22:52)
[2017-02-18] MEDS: NOREPINEPHRINE BITARTRATE 16 MG in 0.9 % SODIUM CHLORIDE 234 ML IV SCH (22:53)
[2017-02-19] MEDS: ALBUTEROL SULFATE 2.5 MG/3 ML NEBULIZER NEB SCH ×4 (00:57→19:38)
[2017-02-19] MEDS: PIPERACILLIN SODIUM/TAZOBACTAM 3.375 GM in DEXTROSE 5% IN WATER 50 ML IV SCH ×4 (00:57→23:41)
[2017-02-19 05:30] LABS: Basophils # (Auto) 0 K/mcL (0.0-0.3); Basophils % (Auto) 0.6 % (0.0-2.0); Eosinophils # (Auto) 0.5 K/mcL (0.0-0.7); Eosinophils % (Auto) 7.3 % (0.0-7.0); Granulocytes % (Auto) 51.6 % (38.0-78.0); Lymphocytes # (Auto) 1.9 K/mcL (1.5-4.8); Mean Cell Volume 85.4 fL (80.0-100.0); Mean Corpuscular HGB Conc 33.9 g/dL (31.0-36.0); Monocytes # (Auto) 0.6 K/mcL (0.1-0.9); Monocytes % (Auto) 9.5 % (1.0-12.0); Platelet Count 227 K/mcL (140-440); RBC 3.98 M/mcL (4.00-5.20); Red Cell Distribution Width 13.2 % (11.5-14.5)
[2017-02-19] MEDS: 0.9 % SODIUM CHLORIDE 10 ML SYRINGE IV SCH ×5 (05:34→21:57)
[2017-02-19] MEDS: DEXTROSE 5%-1/2NS W/40MEQ KCL 1,000 ML IV SCH ×2 (05:34→08:17)
[2017-02-19] MEDS: 0.9 % SODIUM CHLORIDE 250 ML IV SCH ×3 (05:34→18:36)
[2017-02-19 06:00] LABS: ALT/SGPT 11 U/l (0-40); Albumin 2.7 gm/dL (3.2-5.2); Albumin/Globulin Ratio 0.9 (1.0-2.3); Alkaline Phosphatase 76 U/L (39-117); Bilirubin,Direct < 0.2 mg/dL (0.0-0.3); Blood Urea Nitrogen 5 mg/dl (6-20); Gamma Glutamyl Transpeptidase 11 U/L (5-36); Magnesium 1.7 mg/dL (1.6-2.5); Uric Acid 2.5 mg/dL (2.5-8.0)
[2017-02-19] MEDS ORDERED: CALCIUM CARBONATE 500 MG TAB.CHEW CHEWED SCH ×2 (08:00→17:30)
[2017-02-19] MEDS: NEUTRA PHOS 1 PACKET PO SCH ×2 (08:45→20:40)
[2017-02-19] MEDS: FAMOTIDINE/PF 20 MG/2 ML VIAL IV SCH ×2 (08:47→20:40)
[2017-02-19] MEDS: HEPARIN 5,000 UNIT/ML VIAL SQ SCH ×2 (08:47→20:40)
[2017-02-19] MEDS ORDERED: BISACODYL 10 MG SUPP.RECT PR PRN (09:10)
[2017-02-19] MEDS ORDERED: MAGNESIUM HYDROXIDE 30 ML ORAL.SUSP PO PRN ×3 (09:13→18:17)
[2017-02-19] MEDS: ACETAMINOPHEN 325 MG TABLET PO PRN ×2 (09:25→20:41)
--- NOTE | 2017-02-19 10:00 | XRay Report ---
HISTORY: Reason for Exam:intubation, drug od and follow-up right lower lobe infiltrate FINDINGS: A small infiltrate is present at the right lung base. This has improved since 02/18/17. A small band of discoid atelectasis is present medially in the left lower lobe, extending up to the hilum. Lung volumes are small due to poor inspiration. The heart size and pulmonary vasculature are normal. The endotracheal tube and nasogastric tube have been removed. There is no pneumothorax or pleural effusion. IMPRESSION: Resolving pulmonary infiltrates Interpreted and Authenticated by: Nii Herrera 02/19/17
[2017-02-19] MEDS: VANCOMYCIN 1,000 MG in 0.9 % SODIUM CHLORIDE 250 ML IV SCH ×2 (10:39→20:47)
[2017-02-19] MEDS ORDERED: FUROSEMIDE 20 MG/2 ML VIAL IV ONE (11:18)
[2017-02-19] MEDS ORDERED: MAGNESIUM SULFATE 32.48 MEQ in DEXTROSE 5% IN WATER 50 ML IV ONE (12:00)
[2017-02-19] MEDS ORDERED: NOREPINEPHRINE BITARTRATE 16 MG in 0.9 % SODIUM CHLORIDE 234 ML IV PRN (13:30)
[2017-02-19] MEDS ORDERED: VANCOMYCIN PER PHARMACY IV SCH ×2 (13:42→18:17)
[2017-02-19] MEDS ORDERED: 0.9 % SODIUM CHLORIDE 250 ML IV SCH (13:42)
[2017-02-19] MEDS ORDERED: LIDOCAINE VISCOUS 2% 1 ML SOLUTION PO PRN ×2 (13:42→18:17)
[2017-02-19] MEDS ORDERED: ONDANSETRON 4 MG/2 ML VIAL IV PRN ×2 (13:42→18:17)
[2017-02-19] MEDS ORDERED: ACETAMINOPHEN 325 MG TABLET PO PRN (13:42)
[2017-02-19] MEDS ORDERED: ACETAMINOPHEN 160 MG/5 ML ORAL.SOL PO SCH (13:45)
[2017-02-19] MEDS ORDERED: 0.9 % SODIUM CHLORIDE 10 ML SYRINGE IV SCH (14:00)
--- NOTE | 2017-02-19 15:52 | Internal Med Progress Note ---
Medical - PN: Subj Patient information: Note initiated : 02/19/17 at 3:48 pm Service Date, if different from initiated Date: [] Patient: Radha Van a 41 y/o F admitted on 02/16/17 for Drug Overdose. Chief Complaint: [] Interval history: February 16, 2017: History of present illness: Ms. Van is a 41 year old female who reportedly was found down at home by her landlady, with an empty syringe near her. 911 was called. She does have a past history of polysubstance abuse. Her family did not arrive at the emergency room, so there is very little history available. In the emergency room she was only minimally responsive to sternal rub and painful stimuli, with Glascow coma score of 7. She did not respond to IV Narcan. It is unknown how long she was down for. She was intubated in the emergency room to protect her airway. Blood pressures have been running on the low side, so she has been given IV fluids and IV Levophed for support. SHe is now admitted to the intensive care unit, for continued management. February 17: The patient had a relatively quiet night. She was weaned off the propofol this morning, and was fairly calm and mostly unresponsive initially, but then she did wake up and became rather violent and resisted restraints and the ET tube. The nurses could not get her to settle down or follow commands, so propofol was resumed. She did drop her O2 saturations during that period, and FiO2 was increased back up to 45%. -Chest x-ray this morning shows that the ET tube is in a little far, so that was pulled back a bit. She does have bilateral infiltrates consistent with pneumonia, but this may be a bit better this morning. -Urine output has been borderline at about 30 mL/h. -Her mother called in today to check on her, but said she was not sure she would be in today. She reported she has been through this just too many times. February 18: The patient had a good night. She had a couple of episodes where she became quite agitated, but eventually was weaned off the propofol. She was given Ativan this morning for some mild agitation, but has been calm ever since then. She is easily arousable, and cooperative. She was on a weaning trial for quite some time, and did fine, so was extubated about an hour ago. As soon as she was extubated, she asked for pain medication, saying she had a bad headache and a sore throat. Otherwise, she denied chest pain or shortness of breath, abdominal pain, or other GI or symptoms. Later this afternoon, the patient is still quite drowsy. When she is awakened, she immediately asked for pain medication. She indicates she has pain in her head and throat and back and legs, but is fairly nonspecific about what actually hurts, and then almost immediately falls back asleep. Nursing staff tells me that a gentleman came by earlier today, saying he was her program strategist, and that his [employer]al had been working with her to get clean and sober , and that they had gotten her job. He seemed to indicate however, that as soon as she made some money, they thought she had bought drugs. February 19: Today, the patient continues to be quite sleepy. She falls asleep, often mid- sentence. I believe she received 1 dose of IV morphine during the night for pain. The nurses to get her out of bed and have her up in a chair this morning , but she falls asleep there as well. She is questioned more closely today about what happened the night she came in. She says she really does not have a very good memory of it, but she is quite sure she did not use IV drugs. She believes she used a mixture of various prescription drug pills that she had. She cannot explain why a needle was found near her bed, or why her tox screen shows methamphetamines. She admits she just wanted to . She says her life is just too messed up. She did not want to call anyone for help. She admits she does not really have a relationship with her children or other family anymore. She says she hurts all the time. Otherwise, she does report that she has pain, including a headache, pain in her hands and wrist, pain in her knees, pain in her lower sternum, nausea.. She says she has not had a bowel movement for a while. She denies fever or chills, dizziness, shortness of breath, vomiting or diarrhea, or dysuria. She does still have a Miguel catheter in place. - Constitutional Vitals: Vital Signs Temp Pulse Resp BP Pulse Ox 98.3 F 14 L 13 102/51 94 02/19/17 08:05 02/19/17 13:10 02/19/17 15:01 02/19/17 15:01 02/19/17 14:01 Period Temp Pulse Resp BP Sys/Chung Pulse Ox Last 24 Hr 97.6 F-99.8 F 14-99 11-22 99-130/51-80 91-100 Intake and Output 02/19/17 02/19/17 02/19/17 05:59 13:59 21:59 Intake Total 1350 / 1350 2082 Output Total 1090 / 1090 2280 / 2280 460 / 460 Balance 260 / 260 -197 / -197 -460 / -460 Intake & Output: Intake & Output 02/19/17 02/19/17 02/19/17 05:59 13:59 21:59 Intake Total 1350 / 1350 2082 Output Total 1090 / 1090 2280 / 2280 460 / 460 Balance 260 / 260 -197 / -197 -460 / -460 Intake: IV 1300 / 1300 1408 / 1408 Dextrose 5%-1/2Ns W/40Meq 1000 / 1000 1000 / 1000 KCl 1,000 ml @ 150 mls/ hr IV .[id number] [facility] Rx#: [id number] Magnesium Sulfate 32.48 58 / 58 Meq In Dextrose 5% in Water 50 ml @ 58 mls/hr IV ONCE ONE Rx#:[id number] Zosyn 3.375 gm In 50 / 50 100 / 100 Dextrose 5% in Water 50 ml @ 100 mls/hr IV Q6H [facility] Rx#:[id number] Vancomycin 1,000 mg In 250 / 250 250 / 250 Sodium Chloride 0.9% 250 ml @ 250 mls/hr IV Q12H [facility] Rx#:[id number] Oral 50 / 50 675 / 675 Output: Urine Catheter Amount 1090 / 1090 2280 / 2280 460 / 460 Other: Meal Lunch Percent of Meal Consumed 50% Feeding Ability Independent Intake and output shows she is about 4 L ahead on fluids She is sitting up in a chair. She has a hard time keeping her eyes open. Neck is supple without obvious lymphadenopathy or JVD. Cardiac exam shows regular rate and rhythm. Lungs are clear to auscultation. Abdomen is soft and nontender. Extremities: Hands and feet are quite puffy. Neurologic exam: The patient continues to be rather lethargic. She states that she believes it is because she recently OD'd on drugs. Motor exam is grossly nonfocal. Medical - PN: Obj Da - Labs CBC & Chem 7: 02/19/17 04:09 02/19/17 04:09 Labs: Abnormal Lab Results 02/19/17 02/19/17 02/19/17 07:58 04:09 04:09 RBC 3.98 L Hgb 11.5 L Hct 34.0 L Eos % (Auto) 7.3 H Lymph # (Auto) BUN 5 L Glucose 111 H Calcium 7.9 L Phosphorus Total Protein 5.8 L Albumin 2.7 L Globulin Albumin/Globulin Ratio 0.9 L Vancomycin Trough 15.3 H 02/18/17 02/18/17 02/17/17 04:15 04:15 04:31 RBC Hgb 11.7 L 11.6 L Hct 35.1 L 34.6 L Eos % (Auto) Lymph # (Auto) 1.4 L BUN Glucose Calcium 7.9 L Phosphorus 2.4 L Total Protein Albumin 2.9 L Globulin Albumin/Globulin Ratio 0.9 L Vancomycin Trough 02/17/17 04:31 RBC Hgb Hct Eos % (Auto) Lymph # (Auto) BUN Glucose 161 H Calcium Phosphorus Total Protein Albumin Globulin 3.8 H Albumin/Globulin Ratio 0.8 L Vancomycin Trough February 19: Chest x-ray: Shows improved pulmonary infiltrates, at the right lung base, left lower lobe, hilum February 18: ABG on the ventilator, tidal volume 470, FiO2 25%, rate of 12: PH 7.44, CO2 36, PO2 71, bicarb 24, O2 saturation 95% February 17: Urine culture is growing E. coli, intermediate to Unasyn and ciprofloxacin and Levaquin, sensitive to Zosyn, Ancef, Macrobid ABG: On the ventilator, tidal volume 470, FiO2 45%, mechanical rate 10, PEEP of 5, assist control: PH 7.40, PCO2 44, PO2 108, bicarb 27, O2 saturation 98% February 16 nasal MRSA screen is negative. Chest x-ray: ET tube is well-positioned. NG tube is noted in the stomach. Mild streaky infiltrates in both lungs with the greatest involvement of the medial portion of the right lower lobe, without lobar consolidation. February 16: Urinalysis: 100 mg of protein, 25 leukocyte esterase, 51 red blood cells, 10 white blood cells, few bacteria Tox screen: Acetaminophen negative. Screening positive for PCP and amphetamines , otherwise negative. Alcohol negative. Head CT: Reported as negative. Chest x-ray: Reported as possible bilateral infiltrates. Well-positioned ET tube. EKG: Shows sinus tach at about 100. Intervals and axis appear normal. Abdominal x-ray: Normal exam with NG tube noted in the stomach. January 31, 2017: - Lower extremity Doppler: Negative for DVT. -Chest x-ray: Diffuse right-sided infiltrates and mild left perihilar infiltrate , consistent with pneumonia. January 23, 2017: Urine culture: Klebsiella pneumonia: Resistant to ampicillin, intermediate to Macrobid, otherwise pansensitive . Meds: Medications Acetaminophen (Tylenol) 650 mg PO Q6HP PRN PRN Reason: PAIN/FEVER > 101 Acetaminophen (Tylenol) 650 mg PO Q8H [facility] Albuterol Sulfate (Ventolin) 2.5 mg NEB Q6HRT [facility] Calcium Carbonate/Glycine (Tums) 1,000 mg CHEWED BIDCC [facility] Docusate Sodium (Colace) 100 mg PO BID [facility] Famotidine (Pepcid) 20 mg IV Q12 [facility] Heparin Sodium (Porcine) (Heparin) 5,000 unit SQ Q12 [facility] Sodium Chloride (Sodium Chloride 0.9%) 250 mls @ 20 mls/hr IV .[id number] [facility] Last Admin: 02/19/17 14:32 Dose: Not Given Piperacillin Sod/Tazobactam (Sod 3.375 gm/ Dextrose) 50 mls @ 100 mls/hr IV Q6H [facility] Vancomycin HCl 1,000 mg/ (Sodium Chloride) 250 mls @ 250 mls/hr IV Q12H [facility] Ibuprofen (Motrin) 600 mg PO TIDCC [facility] Lidocaine HCl (Lidocaine Viscous 2%) 10 ml PO Q8HP PRN PRN Reason: Sore Throat Magnesium Hydroxide (Milk Of Magnesia) 30 ml PO DAILYP PRN PRN Reason: Constipation Ondansetron HCl (Zofran) 4 mg IV Q4-6HP PRN PRN Reason: Nausea And Vomiting Potassium/Phosphorus/Sodium (Neutra Phos) 1 packet PO BID [facility] Sodium Chloride (Saline Flush) 10 ml IV Q8 [facility] Last Admin: 02/19/17 14:36 Dose: Not Given Vancomycin HCl (Vancomycin Per Pharmacy) 1 order IV UD [facility] Medical - PN: A/P - Time Spent With Patient Total time spent is greater than 50% in coordination of care (as documented) at patient's floor/unit and/or counseling patient: Greater than 35 minutes (1) Drug overdose Status: Acute Current Visit: Yes (2) Hypotension Status: Acute Current Visit: Yes (3) Connective tissue disease Status: Chronic Current Visit: No (4) Depression Status: Chronic Current Visit: No (5) Essential hypertension Status: Chronic Current Visit: No - Narrative A/P Narrative: #1. Psychiatric/apparent drug overdose. This patient presents with obtundation, and was found down at home by her family. A needle was found nearby, suggesting IV drug use. She has a known past history of polysubstance abuse, but had been clean and sober for a while. Was recently started on Suboxone. So far, tox screen is suggestive of methamphetamines and possible PCP. -She does admit that she was quite suicidal the day that she overdosed. -The patient denies recent IV drug use or illegal drug use, but her tox screen would indicate otherwise. We asked [facility] to come and evaluate her this afternoon, and they did, but she was still quite sleepy. The counselor suggested that they come back tomorrow and evaluate her when she is more awake, and medically stable for discharge. -Monitor heart on telemetry, stable so far.. Okay to transfer from ICU status to telemetry. She can come off telemetry once she can consistently stay awake. -Unfortunately, her family did not arrive to discuss CODE STATUS. Hopefully she will be more alert cooperative, given more time. 2. CODE STATUS: Unknown. Full code for now. 3. DVT prophylaxis: Subcu heparin. #4. Neurologic. The patient is awake now, although she continues to be drowsy. Continue supportive care, and reevaluate mental status once more awake. 5. Pulmonary/infectious disease.. -Patient was extubated successfully . She is maintaining O2 saturations on 3 L nasal cannula. -Patient was recently diagnosed with bilateral pneumonia, and treated with Levaquin, on January 31. Current chest x-ray shows improving bilateral infiltrates. Continue IV Zosyn and vancomycin. -UTI is also covered by the Zosyn. 6. Cardiac. So far, no signs of arrhythmias or heart block. Continue monitoring on telemetry -Give IV Lasix 1 today for edema. 7. GI. Orogastric tube removed this morning. On IV famotidine for ulcer prophylaxis. -Start an oral diet once fully awake. -Patient is mildly more anemic than before. Check stool guaiacs. #8. . Abnormal urinalysis. Recent UTI. -Patient will be covered with Zosyn, and is growing E. coli in her urine.. -Remove Miguel catheter today. #9. Renal. Calcium remains on the low side. Replace. Approximately 40 minutes has been spent so far today, reviewing test results, examining the patient twice, reviewing plan of care with nursing staff and [facility] counselor, and writing orders.
[2017-02-19] MEDS ORDERED: IBUPROFEN 600 MG TABLET PO SCH (17:30)
[2017-02-19] MEDS ORDERED: PIPERACILLIN SODIUM/TAZOBACTAM 3.375 GM in DEXTROSE 5% IN WATER 50 ML IV SCH (18:00)
[2017-02-19] MEDS ORDERED: ALBUTEROL SULFATE 2.5 MG/3 ML NEBULIZER NEB SCH (19:00)
[2017-02-19] MEDS: DOCUSATE SODIUM 100 MG CAPSULE PO SCH (20:39)
[2017-02-19] MEDS ORDERED: HEPARIN 5,000 UNIT/ML VIAL SQ SCH (21:00)
[2017-02-19] MEDS ORDERED: FAMOTIDINE/PF 20 MG/2 ML VIAL IV SCH (21:00)
[2017-02-19] MEDS ORDERED: VANCOMYCIN 1,000 MG in 0.9 % SODIUM CHLORIDE 250 ML IV SCH (21:00)
[2017-02-19] MEDS ORDERED: NEUTRA PHOS 1 PACKET PO SCH (21:00)
[2017-02-19] MEDS ORDERED: DOCUSATE SODIUM 100 MG CAPSULE PO SCH ×2 (21:00)
[2017-02-19] MEDS: ACETAMINOPHEN 160 MG/5 ML ORAL.SOL PO SCH (21:56)
[2017-02-20] MEDS: ALBUTEROL SULFATE 2.5 MG/3 ML NEBULIZER NEB SCH ×4 (01:34→19:31)
[2017-02-20] MEDS: PIPERACILLIN SODIUM/TAZOBACTAM 3.375 GM in DEXTROSE 5% IN WATER 50 ML IV SCH ×3 (05:46→17:32)
[2017-02-20] MEDS: ACETAMINOPHEN 325 MG TABLET PO PRN ×2 (05:48→21:50)
[2017-02-20] MEDS: ACETAMINOPHEN 160 MG/5 ML ORAL.SOL PO SCH ×3 (05:49→21:52)
[2017-02-20 05:51] LABS: Basophils # (Auto) 0.1 K/mcL (0.0-0.3); Basophils % (Auto) 1.2 % (0.0-2.0); Eosinophils # (Auto) 0.5 K/mcL (0.0-0.7); Eosinophils % (Auto) 9.6 % (0.0-7.0); Granulocytes % (Auto) 46.4 % (38.0-78.0); Lymphocytes # (Auto) 1.7 K/mcL (1.5-4.8); Lymphocytes % (Auto) 31.8 % (15.5-49.0); Mean Corpuscular HGB Conc 33.5 g/dL (31.0-36.0); Mean Corpuscular Hemoglobin 28.9 pg (26.0-34.0); Monocytes # (Auto) 0.6 K/mcL (0.1-0.9); Platelet Count 243 K/mcL (140-440); RBC 4.02 M/mcL (4.00-5.20); Red Cell Distribution Width 13.4 % (11.5-14.5)
[2017-02-20] MEDS: 0.9 % SODIUM CHLORIDE 10 ML SYRINGE IV SCH ×10 (06:00→22:00)
[2017-02-20 06:26] LABS: ALT/SGPT 14 U/l (0-40); Albumin 2.6 gm/dL (3.2-5.2); Albumin/Globulin Ratio 0.7 (1.0-2.3); Alkaline Phosphatase 79 U/L (39-117); Bilirubin,Direct < 0.2 mg/dL (0.0-0.3); Blood Urea Nitrogen 8 mg/dl (6-20); Gamma Glutamyl Transpeptidase 14 U/L (5-36); Magnesium 2.1 mg/dL (1.6-2.5); Uric Acid 2.7 mg/dL (2.5-8.0)
[2017-02-20] MEDS: 0.9 % SODIUM CHLORIDE 250 ML IV SCH (06:33)
[2017-02-20] MEDS ORDERED: CALCIUM CARBONATE 500 MG TAB.CHEW CHEWED SCH (08:00)
[2017-02-20] MEDS ORDERED: BUPRENORPHINE SL ONE (09:00)
[2017-02-20] MEDS ORDERED: [UNRECOGNIZED DRUG - OTHER] SL ONE (09:00)
[2017-02-20] MEDS ORDERED: HYDROXYCHLOROQUINE 200 MG TABLET PO ONE (09:00)
[2017-02-20] MEDS ORDERED: NABUMETONE 500 MG TABLET PO ONE (09:00)
[2017-02-20] MEDS ORDERED: DULoxetine 30 MG CAPSULE PO ONE (09:00)
[2017-02-20] MEDS ORDERED: GABAPENTIN 300 MG CAPSULE PO ONE (09:00)
[2017-02-20] MEDS: NEUTRA PHOS 1 PACKET PO SCH (09:13)
[2017-02-20] MEDS: FAMOTIDINE/PF 20 MG/2 ML VIAL IV SCH (09:29)
[2017-02-20] MEDS: HEPARIN 5,000 UNIT/ML VIAL SQ SCH ×2 (09:30→21:54)
[2017-02-20] MEDS: DOCUSATE SODIUM 100 MG CAPSULE PO SCH ×2 (09:30→21:55)
[2017-02-20] MEDS: IBUPROFEN 600 MG TABLET PO SCH ×3 (09:31→17:09)
[2017-02-20] MEDS: VANCOMYCIN 1,000 MG in 0.9 % SODIUM CHLORIDE 250 ML IV SCH ×2 (09:37→21:50)
[2017-02-20] MEDS ORDERED: ONDANSETRON 4 MG/2 ML VIAL IV PRN (12:36)
[2017-02-20] MEDS ORDERED: MAGNESIUM HYDROXIDE 30 ML ORAL.SUSP PO PRN (12:36)
[2017-02-20] MEDS ORDERED: VANCOMYCIN PER PHARMACY IV SCH (12:36)
--- NOTE | 2017-02-20 13:56 | Internal Med Progress Note ---
Medical - PN: Subj Patient information: Note initiated : 02/20/17 at 1:56 pm Service Date, if different from initiated Date: [] Patient: Radha Van a 41 y/o F admitted on 02/16/17 for Drug Overdose. Chief Complaint: [] Interval history: February 16, 2017: History of present illness: Ms. Van is a 41 year old female who reportedly was found down at home by her landlady, with an empty syringe near her. 911 was called. She does have a past history of polysubstance abuse. Her family did not arrive at the emergency room, so there is very little history available. In the emergency room she was only minimally responsive to sternal rub and painful stimuli, with Glascow coma score of 7. She did not respond to IV Narcan. It is unknown how long she was down for. She was intubated in the emergency room to protect her airway. Blood pressures have been running on the low side, so she has been given IV fluids and IV Levophed for support. SHe is now admitted to the intensive care unit, for continued management. February 17: The patient had a relatively quiet night. She was weaned off the propofol this morning, and was fairly calm and mostly unresponsive initially, but then she did wake up and became rather violent and resisted restraints and the ET tube. The nurses could not get her to settle down or follow commands, so propofol was resumed. She did drop her O2 saturations during that period, and FiO2 was increased back up to 45%. -Chest x-ray this morning shows that the ET tube is in a little far, so that was pulled back a bit. She does have bilateral infiltrates consistent with pneumonia, but this may be a bit better this morning. -Urine output has been borderline at about 30 mL/h. -Her mother called in today to check on her, but said she was not sure she would be in today. She reported she has been through this just too many times. February 18: The patient had a good night. She had a couple of episodes where she became quite agitated, but eventually was weaned off the propofol. She was given Ativan this morning for some mild agitation, but has been calm ever since then. She is easily arousable, and cooperative. She was on a weaning trial for quite some time, and did fine, so was extubated about an hour ago. As soon as she was extubated, she asked for pain medication, saying she had a bad headache and a sore throat. Otherwise, she denied chest pain or shortness of breath, abdominal pain, or other GI or symptoms. Later this afternoon, the patient is still quite drowsy. When she is awakened, she immediately asked for pain medication. She indicates she has pain in her head and throat and back and legs, but is fairly nonspecific about what actually hurts, and then almost immediately falls back asleep. Nursing staff tells me that a gentleman came by earlier today, saying he was her radio antenna installer, and that his buddhism had been working with her to get clean and sober , and that they had gotten her job. He seemed to indicate however, that as soon as she made some money, they thought she had bought drugs. February 19: Today, the patient continues to be quite sleepy. She falls asleep, often mid- sentence. I believe she received 1 dose of IV morphine during the night for pain. The nurses to get her out of bed and have her up in a chair this morning , but she falls asleep there as well. She is questioned more closely today about what happened the night she came in. She says she really does not have a very good memory of it, but she is quite sure she did not use IV drugs. She believes she used a mixture of various prescription drug pills that she had. She cannot explain why a needle was found near her bed, or why her tox screen shows methamphetamines. She admits she just wanted to . She says her life is just too messed up. She did not want to call anyone for help. She admits she does not really have a relationship with her children or other family anymore. She says she hurts all the time. Otherwise, she does report that she has pain, including a headache, pain in her hands and wrist, pain in her knees, pain in her lower sternum, nausea.. She says she has not had a bowel movement for a while. She denies fever or chills, dizziness, shortness of breath, vomiting or diarrhea, or dysuria. She does still have a Miguel catheter in place. February 20: The patient is sitting up in a chair today, and is awake and fairly alert. She continues to complain of pain in her hands and back and knees, but says overall she is feeling better. She was able to eat some breakfast this morning. She did meet with the behavioral health counselor, who would like to also meet with her and her landlady, just prior to discharge, to be sure they have a safety plan in place. Nursing staff feels she is too sleepy to really not be under close supervision at this point. I delayed discharging her to home until tomorrow, hopefully when she is more alert and functional. Her landlady will let her live in the house with her, but she does go to work during the day, so the patient would have many hours a day when she was alone. - Constitutional Vitals: Vital Signs Temp Pulse Resp BP Pulse Ox 98.0 F 105 H 20 136/65 94 02/20/17 11:00 02/20/17 07:37 02/20/17 11:00 02/20/17 11:00 02/20/17 11:00 Period Temp Pulse Resp BP Sys/Chung Pulse Ox Last 24 Hr 98.0 F-99.9 F 95-105 8-22 100-136/51-89 88-100 Intake and Output 02/19/17 02/20/17 02/20/17 21:59 05:59 13:59 Intake Total 300 / 300 50 / 50 420 / 420 Output Total 775 / 775 850 / 850 575 / 575 Balance -475 / -475 -800 / -800 -155 / -155 Weight 187 lb 1.6 oz Intake & Output: Intake & Output 02/19/17 02/20/17 02/20/17 21:59 05:59 13:59 Intake Total 300 / 300 50 / 50 420 / 420 Output Total 775 / 775 850 / 850 575 / 575 Balance -475 / -475 -800 / -800 -155 / -155 Weight 187 lb 1.6 oz Intake: IV 300 / 300 50 / 50 300 / 300 Zosyn 3.375 gm In 50 / 50 50 / 50 50 / 50 Dextrose 5% in Water 50 ml @ 100 mls/hr IV Q6H [facility] Rx#:[id number] Vancomycin 1,000 mg In 250 / 250 250 / 250 Sodium Chloride 0.9% 250 ml @ 250 mls/hr IV Q12H [facility] Rx#:[id number] Oral 0 / 0 120 / 120 Output: Urine Catheter Amount 700 / 700 Void Amount 75 / 75 850 / 850 575 / 575 Other: Meal Breakfast Percent of Meal Consumed 75% # Voids 1 # Bowel Movements 0 On exam, she still seems a bit on the sleepy side, but is definitely more alert than yesterday. She answers questions appropriately. She still is quite insistent that she did not use IV drugs prior to her drug overdose. She believes she just took prescription medications. Burgess head: Normocephalic, atraumatic. Cardiac exam shows regular rate and rhythm. Lungs have a few crackles at the bases, but otherwise are clear. Abdomen is soft and nontender. Extremities show no significant edema. Neurologic exam: The patient is still a bit lethargic, but improving. Neurologic exam is otherwise grossly nonfocal Medical - PN: Obj Da - Labs CBC & Chem 7: 02/20/17 04:10 02/20/17 04:10 Labs: Abnormal Lab Results 02/20/17 02/20/17 02/19/17 04:10 04:10 07:58 RBC Hgb 11.6 L Hct 34.6 L Eos % (Auto) 9.6 H BUN Glucose Calcium 8.4 L Phosphorus 5.6 H Total Protein Albumin 2.6 L Albumin/Globulin Ratio 0.7 L Triglycerides 164 H Vancomycin Trough 15.3 H 02/19/17 02/19/17 02/18/17 04:09 04:09 04:15 RBC 3.98 L Hgb 11.5 L 11.7 L Hct 34.0 L 35.1 L Eos % (Auto) 7.3 H BUN 5 L Glucose 111 H Calcium 7.9 L Phosphorus Total Protein 5.8 L Albumin 2.7 L Albumin/Globulin Ratio 0.9 L Triglycerides Vancomycin Trough 02/18/17 04:15 RBC Hgb Hct Eos % (Auto) BUN Glucose Calcium 7.9 L Phosphorus 2.4 L Total Protein Albumin 2.9 L Albumin/Globulin Ratio 0.9 L Triglycerides Vancomycin Trough February 19: Chest x-ray: Shows improved pulmonary infiltrates, at the right lung base, left lower lobe, hilum February 18: ABG on the ventilator, tidal volume 470, FiO2 25%, rate of 12: PH 7.44, CO2 36, PO2 71, bicarb 24, O2 saturation 95% February 17: Urine culture is growing E. coli, intermediate to Unasyn and ciprofloxacin and Levaquin, sensitive to Zosyn, Ancef, Macrobid ABG: On the ventilator, tidal volume 470, FiO2 45%, mechanical rate 10, PEEP of 5, assist control: PH 7.40, PCO2 44, PO2 108, bicarb 27, O2 saturation 98% February 16 nasal MRSA screen is negative. Chest x-ray: ET tube is well-positioned. NG tube is noted in the stomach. Mild streaky infiltrates in both lungs with the greatest involvement of the medial portion of the right lower lobe, without lobar consolidation. February 16: Urinalysis: 100 mg of protein, 25 leukocyte esterase, 51 red blood cells, 10 white blood cells, few bacteria Tox screen: Acetaminophen negative. Screening positive for PCP and amphetamines , otherwise negative. Alcohol negative. Head CT: Reported as negative. Chest x-ray: Reported as possible bilateral infiltrates. Well-positioned ET tube. EKG: Shows sinus tach at about 100. Intervals and axis appear normal. Abdominal x-ray: Normal exam with NG tube noted in the stomach. January 31, 2017: - Lower extremity Doppler: Negative for DVT. -Chest x-ray: Diffuse right-sided infiltrates and mild left perihilar infiltrate , consistent with pneumonia. January 23, 2017: Urine culture: Klebsiella pneumonia: Resistant to ampicillin, intermediate to Macrobid, otherwise pansensitive Meds: Medications Acetaminophen (Tylenol) 650 mg PO Q6HP PRN PRN Reason: PAIN/FEVER > 101 Acetaminophen (Tylenol) 650 mg PO Q8H [facility] Albuterol Sulfate (Ventolin) 2.5 mg NEB Q6HRT [facility] Calcium Carbonate/Glycine (Tums) 1,000 mg CHEWED BIDCC [facility] Cyclobenzaprine HCl (Flexeril) 10 mg PO HS [facility] Docusate Sodium (Colace) 100 mg PO BID [facility] Duloxetine HCl (Cymbalta) 60 mg PO QDAY [facility] Gabapentin (Neurontin) 900 mg PO Q8H [facility] Heparin Sodium (Porcine) (Heparin) 5,000 unit SQ Q12 [facility] Hydroxychloroquine Sulfate (Plaquenil) 200 mg PO BID [facility] Piperacillin Sod/Tazobactam (Sod 3.375 gm/ Dextrose) 50 mls @ 100 mls/hr IV Q6H [facility] Vancomycin HCl 1,000 mg/ (Sodium Chloride) 250 mls @ 250 mls/hr IV Q12H [facility] Ibuprofen (Motrin) 600 mg PO TIDCC [facility] Magnesium Hydroxide (Milk Of Magnesia) 30 ml PO DAILYP PRN PRN Reason: Constipation Ondansetron HCl (Zofran) 4 mg IV Q4-6HP PRN PRN Reason: Nausea And Vomiting Atomoxetine Hcl [ (Strattera] 25 Mg Tab) 1 dose PO DAILY [facility] Buprenorphine Hcl/Naloxone Hcl [ Suboxone] 8 Mg/2 Mg Tab 1 dose SL TID [facility] Polyethylene Glycol (Miralax) 17 gm PO DAILY [facility] Potassium/Phosphorus/Sodium (Neutra Phos) 1 packet PO BID [facility] Sodium Chloride (Saline Flush) 10 ml IV Q8 [facility] Vancomycin HCl (Vancomycin Per Pharmacy) 1 order IV UD [facility] Medical - PN: A/P - Time Spent With Patient Total time spent is greater than 50% in coordination of care (as documented) at patient's floor/unit and/or counseling patient: (1) Drug overdose Status: Acute Current Visit: Yes (2) Hypotension Status: Acute Current Visit: Yes (3) Connective tissue disease Status: Chronic Current Visit: No (4) Depression Status: Chronic Current Visit: No (5) Essential hypertension Status: Chronic Current Visit: No - Narrative A/P Narrative: #1. Psychiatric/apparent drug overdose. This patient presents with obtundation, and was found down at home by her family. A needle was found nearby, suggesting IV drug use. She has a known past history of polysubstance abuse, but had been clean and sober for a while. Was recently started on Suboxone. So far, tox screen is suggestive of methamphetamines and possible PCP. -She does admit that she was quite suicidal the day that she overdosed. -The patient denies recent IV drug use or illegal drug use, but her tox screen would indicate otherwise. -She did meet with behavioral health today, and it sounds like they think she will be safe to return home, and will not require inpatient management for her suicidal gesture. They do plan to meet with the patient and her landlady prior to discharge to discuss a safety plan. The patient continues to be tachycardic at times, but has otherwise been clinically stable. -She is not yet seeing awake and aware enough to be left at home alone, but hopefully by tomorrow she will reached a point where she can go back home, with intermittent supervision. 2. CODE STATUS: Unknown. Full code for now. 3. DVT prophylaxis: Subcu heparin. #4. Neurologic. The patient is awake now, although she continues to be drowsy. Continue supportive care. 5. Pulmonary/infectious disease.. -Patient was extubated successfully . She is maintaining O2 saturations on 3 L nasal cannula. -Patient was recently diagnosed with bilateral pneumonia, and treated with Levaquin, on January 31. Current chest x-ray shows improving bilateral infiltrates. Continue IV Zosyn and vancomycin. -UTI is also covered by the Zosyn. 6. Cardiac. So far, no signs of arrhythmias or heart block. Continue monitoring on telemetry 7. GI. . On IV famotidine for ulcer prophylaxis. She is tolerating a regular diet. -Patient is mildly more anemic than before. Stable. #8. . Abnormal urinalysis. Recent UTI. -Patient will be covered with Zosyn, and is growing E. coli in her urine.. Miguel catheter has been discontinued. #9. Renal. Calcium remains on the low side. Replace. Approximately 30 minutes has been spent so far today, reviewing test results, examining the patient , reviewing plan of care with nursing staff and , and writing orders.
[2017-02-20] MEDS: NALOXONE HCL SL SCH ×2 (17:05→21:55)
[2017-02-20] MEDS: BUPRENORPHINE HCL SL SCH ×2 (17:05→21:55)
[2017-02-20] MEDS: GABAPENTIN 300 MG CAPSULE PO SCH ×2 (17:09→21:55)
[2017-02-20] MEDS: CALCIUM CARBONATE 500 MG TAB.CHEW CHEWED SCH (17:10)
[2017-02-20] MEDS ORDERED: NEUTRA PHOS 1 PACKET PO SCH (21:00)
[2017-02-20] MEDS ORDERED: CYCLOBENZAPRINE 10 MG TABLET PO SCH (21:00)
[2017-02-20] MEDS: HYDROXYCHLOROQUINE 200 MG TABLET PO SCH (21:52)
[2017-02-21] MEDS: PIPERACILLIN SODIUM/TAZOBACTAM 3.375 GM in DEXTROSE 5% IN WATER 50 ML IV SCH ×3 (00:19→12:17)
[2017-02-21] MEDS: ALBUTEROL SULFATE 2.5 MG/3 ML NEBULIZER NEB SCH ×3 (01:50→13:34)
[2017-02-21] MEDS: GABAPENTIN 300 MG CAPSULE PO SCH ×2 (04:34→12:19)
[2017-02-21] MEDS: ACETAMINOPHEN 325 MG TABLET PO PRN (04:38)
[2017-02-21] MEDS: ACETAMINOPHEN 160 MG/5 ML ORAL.SOL PO SCH ×2 (05:06→14:55)
[2017-02-21] MEDS: 0.9 % SODIUM CHLORIDE 10 ML SYRINGE IV SCH ×4 (05:46→12:19)
--- NOTE | 2017-02-21 08:22 | XRay Report ---
CLINICAL INFORMATION: Hypoxia and low-grade fever COMPARISON: 02/19/2017 FINDINGS: Heart size, mediastinum and pulmonary vessels are normal. There is minimal airspace disease in the left mid lower lung field likely atelectasis rather than infiltrate no effusion. Bones soft tissues are normal IMPRESSION: Minimal airspace disease in left mid and lower lung - likely atelectasis Interpreted and Authenticated by: Kelechi Mann 02/21/17
[2017-02-21] MEDS: IBUPROFEN 600 MG TABLET PO SCH ×2 (08:49→12:17)
[2017-02-21] MEDS: CALCIUM CARBONATE 500 MG TAB.CHEW CHEWED SCH (08:49)
[2017-02-21] MEDS: HEPARIN 5,000 UNIT/ML VIAL SQ SCH (08:50)
[2017-02-21] MEDS: HYDROXYCHLOROQUINE 200 MG TABLET PO SCH (08:50)
[2017-02-21] MEDS: DOCUSATE SODIUM 100 MG CAPSULE PO SCH (08:51)
[2017-02-21] MEDS: NALOXONE HCL SL SCH ×2 (08:59→15:02)
[2017-02-21] MEDS: BUPRENORPHINE HCL SL SCH ×2 (08:59→15:02)
[2017-02-21] MEDS ORDERED: ATOMOXETINE HCL 25 MG PO SCH (09:00)
[2017-02-21] MEDS ORDERED: DULoxetine 30 MG CAPSULE PO SCH (09:00)
[2017-02-21] MEDS ORDERED: POLYETHYLENE GLYCOL 3350 17 GM PACKET PO SCH (09:00)
[2017-02-21] MEDS: VANCOMYCIN 1,000 MG in 0.9 % SODIUM CHLORIDE 250 ML IV SCH (09:04)
--- NOTE | 2017-02-21 10:52 | Discharge Summary ---
Medical - DS: Prov Patient information: Note initiated : 02/21/17 at 10:49 am Service Date, if different from initiated Date: [] Patient: Radha Van a 41 y/o F admitted on 02/16/17 for Drug Overdose. Chief Complaint: [] Date of admission: 02/16/17 23:15 Discharge date: 02/21/17 Primary care physician: Dr. Kelechi Andrew, PCP. Dr. Erich Eric, marketing research coordinator. [facility] counselors Admitting clinician: Payton Rios Attending physician on discharge: Payton Rios Medical - DS: Meds - Discharge Medications Active and Home Medications: Discharge medications: Continue prior home medications, as directed. Meds noted below. Okay to add Tylenol 650 mg every 6 hours as needed Calcium carbonate recommended 1000 mg twice daily Consider multivitamin 1 daily Previous home Medications: clonidine HCl 0.3 mg tablet 0.3 mg PO BID #60 tab 10/11/16 [Rx Confirmed Last Taken Unknown] atomoxetine/Strattera 25 mg capsule 25 mg PO QDAY #30 cap 12/12/16 [Rx Confirmed 02/18/17 Last Taken Unknown] cyclobenzaprine 10 mg tablet 10 mg PO HS #30 tab 12/15/16 [Rx Confirmed Last Taken Unknown] hydroxychloroquine 200 mg tablet 200 mg PO BID #60 tab 12/15/16 [Rx Confirmed Last Taken Unknown] nabumetone 750 mg tablet 750 mg PO BID #60 tab 12/15/16 [Rx Confirmed 02/18/17 Last Taken Unknown] duloxetine 60 mg capsule,delayed release 60 mg PO QDAY #30 cap 12/26/16 [Rx Confirmed 02/18/17 Last Taken Unknown] buprenorphine 8 mg-naloxone 2 mg sublingual tablet 2 - 8 tab SUBLINGUAL TID tab 01/23/17 [History Confirmed 02/18/17 Last Taken Unknown] gabapentin 300 mg capsule 900 mg PO Q8H #270 cap 02/06/17 [Rx Confirmed Last Taken Unknown] Polyethylene Glycol 3350 [Miralax] 17 gm PO DAILY 02/18/17 [History Confirmed Last Taken Unknown] Medical - DS: Hosp Hospital course: Mr. Van is a 41 year old F February 16, 2017: History of present illness: Ms. Van is a 41 year old female who reportedly was found down at home by her landlady, with an empty syringe near her. 911 was called. She does have a past history of polysubstance abuse. Her family did not arrive at the emergency room, so there is very little history available. In the emergency room she was only minimally responsive to sternal rub and painful stimuli, with Glascow coma score of 7. She did not respond to IV Narcan. It is unknown how long she was down for. She was intubated in the emergency room to protect her airway. Blood pressures have been running on the low side, so she has been given IV fluids and IV Levophed for support. SHe is now admitted to the intensive care unit, for continued management. February 17: The patient had a relatively quiet night. She was weaned off the propofol this morning, and was fairly calm and mostly unresponsive initially, but then she did wake up and became rather violent and resisted restraints and the ET tube. The nurses could not get her to settle down or follow commands, so propofol was resumed. She did drop her O2 saturations during that period, and FiO2 was increased back up to 45%. -Chest x-ray this morning shows that the ET tube is in a little far, so that was pulled back a bit. She does have bilateral infiltrates consistent with pneumonia, but this may be a bit better this morning. -Urine output has been borderline at about 30 mL/h. -Her mother called in today to check on her, but said she was not sure she would be in today. She reported she has been through this just too many times. February 18: The patient had a good night. She had a couple of episodes where she became quite agitated, but eventually was weaned off the propofol. She was given Ativan this morning for some mild agitation, but has been calm ever since then. She is easily arousable, and cooperative. She was on a weaning trial for quite some time, and did fine, so was extubated about an hour ago. As soon as she was extubated, she asked for pain medication, saying she had a bad headache and a sore throat. Otherwise, she denied chest pain or shortness of breath, abdominal pain, or other GI or symptoms. Later this afternoon, the patient is still quite drowsy. When she is awakened, she immediately asked for pain medication. She indicates she has pain in her head and throat and back and legs, but is fairly nonspecific about what actually hurts, and then almost immediately falls back asleep. Nursing staff tells me that a gentleman came by earlier today, saying he was her mechanical and auto body car checker, and that his caodaism had been working with her to get clean and sober , and that they had gotten her job. He seemed to indicate however, that as soon as she made some money, they thought she had bought drugs. February 19: Today, the patient continues to be quite sleepy. She falls asleep, often mid- sentence. I believe she received 1 dose of IV morphine during the night for pain. The nurses to get her out of bed and have her up in a chair this morning , but she falls asleep there as well. She is questioned more closely today about what happened the night she came in. She says she really does not have a very good memory of it, but she is quite sure she did not use IV drugs. She believes she used a mixture of various prescription drug pills that she had. She cannot explain why a needle was found near her bed, or why her tox screen shows methamphetamines. She admits she just wanted to . She says her life is just too messed up. She did not want to call anyone for help. She admits she does not really have a relationship with her children or other family anymore. She says she hurts all the time. Otherwise, she does report that she has pain, including a headache, pain in her hands and wrist, pain in her knees, pain in her lower sternum, nausea.. She says she has not had a bowel movement for a while. She denies fever or chills, dizziness, shortness of breath, vomiting or diarrhea, or dysuria. She does still have a Miguel catheter in place. February 20: The patient is sitting up in a chair today, and is awake and fairly alert. She continues to complain of pain in her hands and back and knees, but says overall she is feeling better. She was able to eat some breakfast this morning. She did meet with the behavioral health counselor, who would like to also meet with her and her landlady, just prior to discharge, to be sure they have a safety plan in place. Nursing staff feels she is too sleepy to really not be under close supervision at this point. I delayed discharging her to home until tomorrow, hopefully when she is more alert and functional. Her landlady will let her live in the house with her, but she does go to work during the day, so the patient would have many hours a day when she was alone. February 21: Hospital course: This patient was admitted after being found down. A needle syringe was found in the trash, and various pill bottles were found. She was unresponsive on arrival. She was intubated to protect her airway. She was extubated on February 18. She did well in terms of oxygenation, but remained extremely lethargic for the next couple of days. She is very gradually come around over the last day or so, and is now awake and alert. She reported quite a bit of pain after extubation, so most of her usual home medications were resumed, as she does have known inactive tissue disorder with polyarthralgia and fibromyalgia. She also was diagnosed with pneumonia recently, and that was confirmed during admission. She was treated with 5 days of IV vancomycin and Zosyn, and today her chest x-ray looks much improved. She continues to have a mild cough, but this is mostly nonproductive. Her O2 saturations will drift into the upper 80s when she is asleep, but otherwise her sats are normal on room air. She has met with a counselor from [facility] 2 or 3 times during her stay. They feel she is safe to return home, with her jyothi, who agrees to take her back. They hope to meet with her today to clarify a safety plan. Today, she denies fever chills, chest pain or palpitations, shortness of breath , abdominal pain, nausea or vomiting, diarrhea or constipation or dysuria. On exam, she is more alert than yesterday. She answers questions appropriately. She still is quite insistent that she did not use IV drugs prior to her drug overdose. She believes she just took prescription medications. Temperature varies from 98.2-99.2. Heart rate varies from 88-111.. O2 saturation is 96% on room air. Neck is supple without obvious JVD or lymphadenopathy. Cardiac exam shows regular rate and rhythm. Lungs have a few crackles at the bases, but otherwise are clear. Abdomen is soft and nontender. Extremities show no significant edema. Neurologic exam: She is alert and oriented today. Neurologic exam is otherwise grossly nonfocal Assessment and plan: #1. Psychiatric/apparent drug overdose. This patient presents with obtundation, and was found down at home by her landlady. A needle was found nearby, suggesting IV drug use. She has a known past history of polysubstance abuse, but had been clean and sober for a while. Was recently started on Suboxone. So far, tox screen is suggestive of methamphetamines and possible PCP. -She does admit that she was quite suicidal the day that she overdosed. -The patient denies recent IV drug use or illegal drug use, but her tox screen would indicate otherwise. -She did meet with behavioral health , and it sounds like they think she will be safe to return home, and will not require inpatient management for her suicidal gesture. They do plan to meet with the patient and her landlady prior to discharge to discuss a safety plan. The patient continues to be tachycardic at times, but has otherwise been clinically stable. -She will live with her landlady, who will help to keep an eye on her. Her landlady does work during the day though, so the patient will have some alone hours as well. 2. CODE STATUS: Unknown. Full code . 3. DVT prophylaxis: Subcu heparin. #4. Neurologic. Mental status is probably back to baseline. 5. Pulmonary/infectious disease.. -Patient was extubated successfully . She is maintaining O2 on room air. -Patient was recently diagnosed with bilateral pneumonia, and treated with Levaquin, on January 31. Current chest x-ray shows mostly resolved bilateral infiltrates. Discontinue IV Zosyn and vancomycin. -UTI is also covered by the Zosyn. 6. Cardiac. She did not have significant arrhythmias during her stay. 7. GI. -Peptic ulcer disease prophylaxis was IV famotidine. She is tolerating a regular diet. -Patient is mildly more anemic than before. Stable. #8. . Abnormal urinalysis. Recent UTI. -Patient was also covered with Zosyn, and is growing E. coli in her urine.. Miguel catheter has been discontinued. #9. Renal. Calcium remains on the low side. Replace. Disposition: The counselor is to meet with her and her landlady today prior to discharge. She is to return home with her landlady. She apparently has connections through her caodaism, and they are also trying to help her to stay clean and sober. She will hopefully follow up with her primary care physician, Dr. Kelechi Andrew, as well as her counselor. Today's visit took approximately 35 minutes, to review her test results, interview and examine her, review plan of care with staff, and write orders. Discharge diagnosis: Drug overdose with respiratory compromise. Bilateral pneumonia. UTI. Secondary discharge diagnosis: History of methamphetamine abuse. Depression with suicidal attempt. 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 - Time Spent with Patient Total time spent providing and/or coordinating discharge services: Greater than 30 minutes Medical - DS: Exam - Constitutional Vitals: Vital Signs Temp Pulse Pulse Resp BP BP BP 02/21/17 07:33 111 H 16 02/21/17 07:20 99.2 F H 16 142/103 02/21/17 04:00 99.2 F H 102 H 20 149/88 02/21/17 00:00 98.2 F 20 113/71 02/20/17 20:00 97.8 F 20 113/65 02/20/17 19:31 100 H 18 02/20/17 19:00 99 H 02/20/17 15:56 97.7 F 20 129/73 02/20/17 15:00 97.7 F 100 H 20 129/73 02/20/17 14:02 102 H 02/20/17 14:00 95 H 16 02/20/17 12:03 136/95 02/20/17 11:00 98.0 F 20 136/65 Pulse Ox 02/21/17 07:33 02/21/17 07:20 96 02/21/17 04:00 84 L 02/21/17 00:00 88 L 02/20/17 20:00 94 02/20/17 19:31 02/20/17 19:00 90 02/20/17 15:56 96 02/20/17 15:00 94 02/20/17 14:02 90 02/20/17 14:00 02/20/17 12:03 02/20/17 11:00 94 Intake and Output 02/20/17 02/21/17 02/21/17 21:59 05:59 13:59 Intake Total 700 / 700 500 / 500 490 / 490 Output Total 950 / 950 600 / 600 Balance -250 / -250 500 / 500 -110 / -110 Intake: IV 50 / 50 300 / 300 50 / 50 Zosyn 3.375 gm In 50 / 50 50 / 50 50 / 50 Dextrose 5% in Water 50 ml @ 100 mls/hr IV Q6H [facility] Rx#:[id number] Vancomycin 1,000 mg In 250 / 250 Sodium Chloride 0.9% 250 ml @ 250 mls/hr IV Q12H [facility] Rx#:[id number] Oral 650 / 650 200 / 200 440 / 440 Output: Void Amount 950 / 950 600 / 600 Other: Meal snack Breakfast Percent of Meal Consumed 75% 100% 90% Feeding Ability Independent Assist with Tray Set Up Independent # Bowel Movements 1 1 Weight 187 lb 11.2 oz Medical - DS: Data Labs on day of discharge: February 21: Chest x-ray: Shows minimal airspace disease in the left mid lower lung field, likely atelectasis rather than infiltrate. Otherwise normal. February 20: CBC: White blood cell count 5500, hemoglobin 11, hematocrit 34, platelets 243. Automated differential shows elevated eosinophil count of 9.6. Granulocyte count is normal. Lymphocyte count is normal Chemistry panel: Sodium 142, potassium 4.5, chloride 104, CO2 26, BUN 8, creatinine 0.7, glucose 82, total calcium 8.4, total phosphorus 5.6, albumin is low at 2.6 February 19: Chest x-ray: Shows improved pulmonary infiltrates, at the right lung base, left lower lobe, hilum February 18: ABG on the ventilator, tidal volume 470, FiO2 25%, rate of 12: PH 7.44, CO2 36, PO2 71, bicarb 24, O2 saturation 95% February 17: Urine culture is growing E. coli, intermediate to Unasyn and ciprofloxacin and Levaquin, sensitive to Zosyn, Ancef, Macrobid ABG: On the ventilator, tidal volume 470, FiO2 45%, mechanical rate 10, PEEP of 5, assist control: PH 7.40, PCO2 44, PO2 108, bicarb 27, O2 saturation 98% February 16 nasal MRSA screen is negative. Chest x-ray: ET tube is well-positioned. NG tube is noted in the stomach. Mild streaky infiltrates in both lungs with the greatest involvement of the medial portion of the right lower lobe, without lobar consolidation. February 16: Urinalysis: 100 mg of protein, 25 leukocyte esterase, 51 red blood cells, 10 white blood cells, few bacteria Tox screen: Acetaminophen negative. Screening positive for PCP and amphetamines , otherwise negative. Alcohol negative. Head CT: Reported as negative. Chest x-ray: Reported as possible bilateral infiltrates. Well-positioned ET tube. EKG: Shows sinus tach at about 100. Intervals and axis appear normal. Abdominal x-ray: Normal exam with NG tube noted in the stomach. January 31, 2017: - Lower extremity Doppler: Negative for DVT. -Chest x-ray: Diffuse right-sided infiltrates and mild left perihilar infiltrate , consistent with pneumonia. January 23, 2017: Urine culture: Klebsiella pneumonia: Resistant to ampicillin, intermediate to Macrobid, otherwise pansensitive Medical - DS: A/P - Patient/Caregiver Discharge Instructions Activity: increase activity as tolerated Diet: Low Sodium (2gm) Additional Instructions: 1. Please resume all previous prescriptions, and take only as directed. 2. Please follow-up with your behavioral health counselor, as soon as you are able. Please attend support meetings as you are able. 3. Please be sure you have a safety plan in place, and be sure to call for help if you are ever feeling suicidal or feeling like he need to use drugs. 4. Please follow-up with Dr. Andrew in the next 1-2 weeks. #5. You recently had both a bladder infection and pneumonia. It does not appear that you need antibiotics any longer, but if you develop fever and chills , worsening cough or shortness of breath, or other worrisome symptoms, please contact your doctor. - Problem Maintenance (1) Drug overdose Status: Acute Qualifiers: Encounter type: initial encounter Injury intent: undetermined intent Qualified Code(s): T50.904A - Poisoning by unspecified drugs, medicaments and biological substances, undetermined, initial encounter (2) Hypotension Status: Acute Qualifiers: Hypotension type: hypotension due to drug Qualified Code(s): I95.2 - Hypotension due to drugs (3) Connective tissue disease Status: Chronic (4) Depression Status: Chronic Qualifiers: Depression Type: major depressive disorder Major depression recurrence: recurrent Active/Remission status: currently active Major depression episode severity: mild Qualified Code(s): F33.0 - Major depressive disorder, recurrent, mild (5) Essential hypertension Status: Chronic - Follow up Plan Follow up with: Kelechi Andrew DO [Physician] - 02/28/17 1:45 pm Disposition: Home, Self-Care Prognosis: Fair Rehab Potential: Fair I certify that the patient requires SNF services: No Overall status at discharge: patient is progressing back to baseline
== END 2017-02-21 17:45 | disposition home or self-care (01) | DRG 917 ==
LOC: EDBD → ED 20:29 → MERGE 20:29 → ICU 23:15
PROVIDERS: ADMIT Internal Medicine; ATTEND Internal Medicine